=== PATIENT | female | born 1950 | race American Indian/Alaskan Native ===

== ENCOUNTER 2017-04-04 15:38 | Inpatient (IN) | payer MEDICARE ==
[2017-04-04] MEDS ORDERED: DUONEB 0.5 MG-3 MG/3 ML SOLN IH PRN (15:44)
[2017-04-04] MEDS ORDERED: ZOFRAN IV PRN (15:44)
[2017-04-04] MEDS ORDERED: D50W (25GM) IV PRN (15:46)
--- NOTE | 2017-04-04 15:47 | History and Physical Report ---
Medications and Allergies Active Meds: Active Medications Acetaminophen (Tylenol) 650 mg PO Q4H PRN PRN Reason: Pain MILD(1-3)/Fever >100.5/DUMONT Albuterol/Ipratropium (Duoneb 0.5 Mg-3 Mg/3 Ml Soln) 1 ampul IH Q6HRT PRN PRN Reason: Wheezing Dextrose (D50w (25gm)) 50 ml IV PRN PRN PRN Reason: Hypoglycemia Sodium Chloride (Nacl 0.45% 1000 Ml) 1,000 mls @ 42 mls/hr IV DIRECT CAMILA Insulin Aspart (Novolog) 0 units SUB-Q ACHS CAMILA PRN Reason: Protocol Ondansetron HCl (Zofran) 4 mg IV Q8H PRN PRN Reason: N/V unrelieved by Joe
[2017-04-04] MEDS ORDERED: PROVENTIL IH PRN (16:16)
[2017-04-04] MEDS: NACL 0.45% 1000 ML 1,000 ML IV SCH (17:53)
[2017-04-04] MEDS: NOVOLOG SUB-Q SCH (18:00)
[2017-04-04 20:04] LABS: Hematocrit 22.7 % (30.3-42.9); Hemoglobin 7.1 gm/dl (10.1-14.3); Mean Corpuscular HGB Conc 31 % (30-34); Mean Corpuscular Volume 67 fl (79-97); Platelet Count 344 K/mm3 (140-440); Red Blood Count 3.39 M/mm3 (3.65-5.03); White Blood Count 7.4 K/mm3 (4.5-11.0)
[2017-04-04 20:05] LABS: Mean Corpuscular Hemoglobin 21 pg (28-32)
[2017-04-04 20:15] LABS: INR 0.95 (0.87-1.13)
[2017-04-04 20:26] LABS: Alanine Aminotransferase 16 units/L (7-56); Albumin/Globulin Ratio 0.6 %; Alkaline Phosphatase 88 units/L (35-129); Anion Gap 20 mmol/L; BUN/Creatinine Ratio 11.11; Bilirubin,Total < 0.20 mg/dL (0.1-1.2); Blood Urea Nitrogen 30 mg/dL (7-17); Calcium 8.3 mg/dL (8.4-10.2); Carbon Dioxide 20 mmol/L (22-30); Chloride 104.2 mmol/L (98-107); Glucose 132 mg/dL (65-100); Potassium 3.5 mmol/L (3.6-5.0); Sodium 141 mmol/L (137-145); Total Protein 7.8 g/dL (6.3-8.2)
--- NOTE | 2017-04-04 20:47 | History and Physical Report ---
History of Present Illness Date of admission: 04/04/17 16:06 History of present illness: 66 YO Female Female who currently resides in an Assisted Living Facility with Dementia, HTN, ARF presents to ED for evaluation. Pt directly admitted at the request of Dr. Morrison for Acute Renal Failure,and Encephalopathy. Pt denies fever, chills, CP, Palpitations, NVD, Falls, Vertigo, BRBPR, productive cough, night sweats, hematuria, trauma, or recent ill contacts. Pt daughter at bedside, and request information regarding SNF/Dementia Unit placement. Pt daughter states that patient is becoming more confused, and her needs currently are not able to be met at her current facility. Past History Past Medical History: anemia, diabetes, hypertension, renal failure Past Surgical History: cholecystectomy, hysterectomy, Other (foot surgery) Social history: , lives with family. denies: smoking, alcohol abuse, prescription drug abuse Family history: hypertension Medications and Allergies Allergies Allergy/AdvReac Type Severity Reaction Status Date / Time Penicillins Allergy Rash Unverified 04/04/17 16:07 Active Meds: Active Medications Acetaminophen (Tylenol) 650 mg PO Q4H PRN PRN Reason: Pain MILD(1-3)/Fever >100.5/DUMONT Albuterol (Proventil) 2.5 mg IH Q6HRT PRN PRN Reason: Wheezing Dextrose (D50w (25gm)) 50 ml IV PRN PRN PRN Reason: Hypoglycemia Sodium Chloride (Nacl 0.45% 1000 Ml) 1,000 mls @ 42 mls/hr IV DIRECT CAMILA Last Admin: 04/04/17 17:53 Dose: 42 mls/hr Insulin Aspart (Novolog) 0 units SUB-Q ACHS CAMILA PRN Reason: Protocol Last Admin: 04/04/17 18:00 Dose: Not Given Ondansetron HCl (Zofran) 4 mg IV Q8H PRN PRN Reason: N/V unrelieved by [facility] Pneumococcal Polyvalent Vaccine (Pneumovax 23) 0.5 ml IM .ONCE ONE Stop: 04/05/17 12:01 Exam - Constitutional Vitals: Temp Pulse Resp BP Pulse Ox 98.7 F 78 19 179/92 04/04/17 17:00 04/04/17 17:00 04/04/17 17:00 04/04/17 17:00 Results - Labs CBC & Chem 7: 04/04/17 19:39 04/04/17 19:39 Labs: Abnormal lab results 04/04/17 04/04/17 04/04/17 Range/Units 17:08 19:05 19:39 RBC 3.39 L (3.65-5.03) M/mm3 Hgb 7.1 L (10.1-14.3) gm/dl Hct 22.7 L (30.3-42.9) % MCV 67 L (79-97) fl MCH 21 L (28-32) pg RDW 20.0 H (13.2-15.2) % Potassium (3.6-5.0) mmol/L Carbon Dioxide (22-30) mmol/L BUN (7-17) mg/dL Creatinine (0.7-1.2) mg/dL Glucose (65-100) mg/dL POC Glucose 47 L 155 H (70-105) Calcium (8.4-10.2) mg/dL Albumin (3.9-5) g/dL 04/04/17 Range/Units 19:39 RBC (3.65-5.03) M/mm3 Hgb (10.1-14.3) gm/dl Hct (30.3-42.9) % MCV (79-97) fl MCH (28-32) pg RDW (13.2-15.2) % Potassium 3.5 L (3.6-5.0) mmol/L Carbon Dioxide 20 L (22-30) mmol/L BUN 30 H (7-17) mg/dL Creatinine 2.7 H (0.7-1.2) mg/dL Glucose 132 H (65-100) mg/dL POC Glucose (70-105) Calcium 8.3 L (8.4-10.2) mg/dL Albumin 3.0 L (3.9-5) g/dL Assessment and Plan - Patient Problems (1) Symptomatic anemia Current Visit: Yes Status: Acute Plan to address problem: PRBC transfusion, supportive care, (2) ARF (acute renal failure) Current Visit: Yes Status: Acute Qualifiers: Acute renal failure type: A Plan to address problem: Renal ultrasound, urine electrolytes, monitor uop q shift, nephrology consulted , (3) Diabetes Current Visit: Yes Status: Acute Qualifiers: Diabetes mellitus type: D Diabetes mellitus complication status: D Diabetes mellitus complication detail: D Diabetic retinopathy severity: D Proliferative retinopathy type: P Diabetes mellitus macular edema: D Diabetes mellitus nursing home insulin use: D Laterality: L Chronic kidney disease stage: C Plan to address problem: ADA diet, insulin, accu check (4) Encephalopathy acute Current Visit: Yes Status: Acute Plan to address problem: CT head, urinalysis, supportive care. (5) Debility Current Visit: Yes Status: Acute Plan to address problem: PT consulted, Bed alarm, fall precautions. (6) DVT prophylaxis Current Visit: Yes Status: Acute
[2017-04-04 21:25] LABS: Basophils % (Manual) 0 % (0.0-1.8); Blastocytes % (Manual) 0 %; Eosinophils % (Manual) 0 % (0.0-4.3)
[2017-04-04 21:26] LABS: Diff Status Complete; Microcytosis 1+
--- NOTE | 2017-04-04 23:21 | Cat Scan Report ---
FINAL REPORT PROCEDURE: CT HEAD/BRAIN WO CON TECHNIQUE: Computerized tomography of the head was performed without contrast material. HISTORY: confusion COMPARISON: No prior studies are available for comparison. FINDINGS: Cerebral sulci and ventricles are prominent consistent with cerebral atrophy appropriate for patient's age. Moderate degree bilateral periventricular nonspecific white matter hypodensity is noted. An acute intracranial hemorrhage is not identified. There are multiple old lacunar infarcts involving bilateral basal ganglia. An irregular hypodense lesion measuring 1.8 x 0.7 centimeters is noted in the right internal capsule/basal ganglionic region is noted with ex vacuo dilatation of the right frontal horn. Atherosclerotic calcification is noted involving bilateral internal carotid and vertebral arteries. IMPRESSION: Multiple old lacunar infarcts bilateral basal ganglia. An irregular area of encephalomalacia involving the right periventricular region is consistent with an old infarct. No acute intracranial hemorrhage is identified. Cerebral atrophy appropriate for patient's age
[2017-04-05] MEDS: NOVOLOG SUB-Q SCH ×5 (00:15→23:31)
[2017-04-05] MEDS ORDERED: NACL 0.9% 500 ML 500 ML IV ONE (06:00)
[2017-04-05 07:17] LABS: Alanine Aminotransferase 15 units/L (7-56); Albumin/Globulin Ratio 0.7 %; Alkaline Phosphatase 84 units/L (35-129); BUN/Creatinine Ratio 12.08; Bilirubin,Total < 0.20 mg/dL (0.1-1.2); Blood Urea Nitrogen 29 mg/dL (7-17); Calcium 8.7 mg/dL (8.4-10.2); Carbon Dioxide 22 mmol/L (22-30); Glucose 98 mg/dL (65-100); Total Protein 7.4 g/dL (6.3-8.2)
[2017-04-05 07:18] LABS: Anion Gap 16 mmol/L; Chloride 105.4 mmol/L (98-107); Potassium 3.4 mmol/L (3.6-5.0); Sodium 140 mmol/L (137-145)
--- NOTE | 2017-04-05 09:33 | Consultation ---
History of Present Illness - Reason for Consult Consult date: 04/05/17 acute renal failure - History of Present Illness Mrs. Gregory is a 66yo with hypertension and DM who presented to nephrology clinic appt for follow up visit. She was initially referred by her PCP Dr. Mccarthy, for microalbuminuria. At initial visit, her SCr was 0.9mg/dL. However , follow up labs were notable for SCr 2.7mg/dL and UPCR 10grams. Patient also with decline in Hb to 7.1. Patient has no history of nausea, vomiting and diarrhea. According to patient's daughter, patient's appetite is unchanged. Ther is no history of epistaxis, hemoptysis, fever, chills. Patient's daughter also requested SNF placement. She was admitted for further management/ eval of ROXANN. Past History Past Medical History: anemia, diabetes, hypertension, renal failure Past Surgical History: cholecystectomy, hysterectomy, Other (foot surgery) Social history: , lives with family. denies: smoking, alcohol abuse, prescription drug abuse Family history: hypertension Medications and Allergies Allergies Allergy/AdvReac Type Severity Reaction Status Date / Time Penicillins Allergy Rash Unverified 04/04/17 16:07 Home Medications Medication Instructions Recorded Confirmed Last Taken Type Amlodipine Besylate 10 mg PO DAILY 04/05/17 04/05/17 Unknown History AtorvaSTATin 20 mg PO DAILY 04/05/17 04/05/17 Unknown History Cyanocobalamin (Vitamin B-12) 1,000 mcg PO DAILY 04/05/17 04/05/17 Unknown History [B-12] Donepezil [Aricept] 10 mg PO DAILY 04/05/17 04/05/17 Unknown History Ferrous Sulfate [Feosol] 325 mg PO QDAY 04/05/17 04/05/17 Unknown History Hydrochlorothiazide [HCTZ] 25 mg PO QDAY 04/05/17 04/05/17 Unknown History Ibandronate Sodium [Boniva] 150 mg PO QMONTH 04/05/17 04/05/17 Unknown History QUEtiapine [SEROquel] 25 mg PO DAILY 04/05/17 04/05/17 Unknown History Sitagliptin Phosphate [Januvia] 100 mg PO DAILY 04/05/17 04/05/17 Unknown History glipiZIDE [Glucotrol] 5 mg PO QDAY 04/05/17 04/05/17 Unknown History metFORMIN [Glucophage] 500 mg PO QDAY 04/05/17 04/05/17 Unknown History traZODone [Desyrel] 100 mg PO QHS 04/05/17 04/05/17 Unknown History Active Meds: Active Medications Acetaminophen (Tylenol) 650 mg PO Q4H PRN PRN Reason: Pain MILD(1-3)/Fever >100.5/DUMONT Albuterol (Proventil) 2.5 mg IH Q6HRT PRN PRN Reason: Wheezing Dextrose (D50w (25gm)) 50 ml IV PRN PRN PRN Reason: Hypoglycemia Sodium Chloride (Nacl 0.45% 1000 Ml) 1,000 mls @ 42 mls/hr IV DIRECT CAMILA Last Admin: 04/04/17 17:53 Dose: 42 mls/hr Insulin Aspart (Novolog) 0 units SUB-Q ACHS CAMILA PRN Reason: Protocol Last Admin: 04/05/17 09:08 Dose: Not Given Ondansetron HCl (Zofran) 4 mg IV Q8H PRN PRN Reason: N/V unrelieved by [facility] Pneumococcal Polyvalent Vaccine (Pneumovax 23) 0.5 ml IM .ONCE ONE Stop: 04/05/17 12:01 Review of Systems Constitutional: no fever, no chills, no sweats Ears, nose, mouth and throat: no epistaxis Cardiovascular: no chest pain, no orthopnea, no shortness of breath Respiratory: no cough, no hemoptysis, no shortness of breath, no dyspnea on exertion Gastrointestinal: no abdominal pain, no nausea, no vomiting, no diarrhea, no BRBPR, no melena Musculoskeletal: no myalgias Integumentary: no rash Neurological: memory loss Exam - Vital Signs Vital signs: Vital Signs Temp Pulse Resp BP 98.7 F 78 19 179/92 04/04/17 17:00 04/04/17 17:00 04/04/17 17:00 04/04/17 17:00 - General Appearance General appearance: well-developed, well-nourished EENT: ATNC Respiratory: Clear to Ascultation Heart: regular, S1S2 Gastrointestinal: Present: normal. Absent: tenderness, distended Integumentary: no rash Musculoskeletal: Present: other (no edema) Psychiatric: cooperative Results - Lab Results 04/04/17 19:39 04/05/17 06:27 Most recent lab results Calcium 8.7 mg/dL (8.4-10.2) 04/05/17 06:27 Assessment and Plan Impression: * Acute kidney injury - r/o vasculitis --baseline SCr 0.9mg.dL * Nephrotic range proteinuria * Anemia * Type II DM * Hypertension * Dementia Plan: * SCr has improved with IVF - will continue * Obtain urine lytes, u/a; repeat urine protein:creatinine ratio * Obtain UPEP/SPEP/SIFE * Continue to hold metformin * Patient may require renal bx in light of ROXANN and nephrotic range proteinura on outpatient labs * Per RN, daughter declines pRBC transfusion * Avoid nephrotoxins * Dose medications for renal function * SNF placement per request of daughter
[2017-04-05 10:02] LABS: Bacteria,Urine 4+ /HPF (Negative); Bilirubin,Urine NEG (Negative); Blood,Urine NEG (Negative); Ketones,Urine NEG (Negative); Leukocyte Esterase,Urine MOD (Negative); Mucus,Urine FEW /HPF; Nitrite,Urine NEG (Negative); Urobilinogen,Urine < 2.0 mg/dL (<2.0)
--- NOTE | 2017-04-05 10:38 | Ultrasound Report ---
ULTRASOUND RENAL BILATERAL HISTORY: Acute renal failure. TECHNIQUE: transabdominal ultrasound with color Doppler interrogation. FINDINGS: The right kidney measures 9.4 x 4.8 x 5.8cm. Right renal cortex: 1.8cm. The left kidney measures 8.6 x 5.7 x 6.1cm. Left renal cortex: 1.8cm. Both kidneys are at the lower limits of normal size. The renal parenchyma is echogenic bilaterally. There are 3 cysts in the mid right kidney measuring 9 mm, 15 mm and 21 mm. There is no evidence for renal mass, nephrolithiasis or hydronephrosis. The bladder is partially empty but unremarkable. No evidence for cystic disease, mass, hydronephrosis or perinephric fluid. IMPRESSION: Borderline atrophic kidneys. Echogenic kidneys. This could represent chronic renal parenchymal disease or acute renal failure.
--- NOTE | 2017-04-05 11:19 | Admit Criteria Form ---
Admission Criteria Documentation: RENAL FAILURE, ACUTE Clinical Indications for Admission to Inpatient Care ( Place 'X' for any and all applicable criteria): Admission is indicated for ALL (if I & II) or III of the following [A](2)(3)(4)( 5)(6)(7): [ ]I. Acute renal failure as indicated by ANY ONE of the following: [ ]a) A 3-fold rise in serum creatinine from baseline [ ]b) Serum creatinine greater than 4 mg/dL (354 micromoles/L) with an acute rise greater than 0.5 mg/dL (44.2 micromoles/L) [ ]c) Reduction of more than 75% in estimated glomerular filtration rate from baseline [ ]d) Estimated glomerular filtration rate less than 35 mL/min/1.73m2 (0.59mL/sec/1.73m2)in a child up to 18 years of age [ ]e) Anuria indicated by ALL of the following: [ ]i) Adequate volume status [ ]ii) Cessation of urine output indicated by ANY ONE of the following: [ ]1) Urine output less than 0.3 mL/kg/hr for 24 hours [ ]2) Anuria (urine output less than 0.1 mL/kg/ hr) for 12 hours [ ] II. Renal failure cannot be managed in an outpatient setting or observational care setting as indicating by ANY ONE of the following: [ ]a) Altered mental status that is severe or persistent [ ]b) Volume overload or Respiratory distress (eg, clinically significant pulmonary edema) that is severe or persistent [ ]c) Cardiac arrhythmias of immediate concern [ ]d) Hemodynamic instability [ ]e) Clinically significant electrolyte abnormality that requires inpatient care (eg, hyperkalemia with severe ECG findings)[B] [ ]f) Clinically significant metabolic abnormality (eg, acidosis) that is severe or persistent [ ]g) Acute treatment of renal failure (eg, renal replacement therapy) not feasible or appropriate in observational care setting [ ]h) Clinical situation too unstable or uncertain (eg, inadequate urine output, ongoing decline in renal function, etiology unclear) [ ]i) Necessary support and caregiver ability to comply with outpatient treatment cannot be arranged in observation care timeframe (eg, within 24 hours) [ ]j) Other significant finding or clinical condition judged not to be within scope of observation care [X]III.General contraindications and/or Inappropriate clinical situations for Observational Care in patients with Acute Renal Failure, when ANY ONE of the following is required: [X]a) Prediction of prolongation of LOS based on ANY ONE of the following may be considered as a contraindication for observational care 2, 3, 4, 5, 6, 7, 8 , 9, 10, 11 [X]i) Age > 65 yrs. [ ]ii) Patient arriving by ambulance [ ]iii) Patient with high acuity [ ]iv) Patient requiring vital sign monitoring [ ]v) Patient on IV medication [X]b) Systolic blood pressures 180mmHg 3,12 [ ]c) Patient with altered mental status including delirium and other alteration of consciousness, (3) [ ]d) Patient whose discharge disposition will be to a penitentiary home or rehabilitation home should not be managed in Emergency Department Observation Unit. CMS rule requires 3 days hospital stay before such placement.3,13 [ ]e) Patient with failure to thrive due to broad array of etiologies 3, 16,17 [ ]f) Inability to ambulate 3,14 Extended stay beyond goal length of stay may be needed for(13) [ ]a) Continuing uremic complications [ ]b) Care for comorbidities [ ]c) acute renal failure [ ]d) Need for dialysis The original [employer] content created by [employer] has been revised. The portions of the content which have been revised are identified through the use of italic text or in bold, and [facility] has neither reviewed nor approved the modified material. All other unmodified content is copyright [facility]. Please see references footnoted in the original [facility] edition 2016 Admission Criteria Met: Yes
[2017-04-05] MEDS ORDERED: PNEUMOVAX 23 IM ONE (12:00)
--- NOTE | 2017-04-05 12:15 | Progress Note ---
Assessment and Plan - Patient Problems (1) Symptomatic anemia Current Visit: Yes Status: Acute Plan to address problem: PRBC transfusion, supportive care, (2) ARF (acute renal failure) Current Visit: Yes Status: Acute Qualifiers: Acute renal failure type: A Plan to address problem: Renal ultrasound, urine electrolytes, monitor uop q shift, nephrology consulted , (3) Diabetes Current Visit: Yes Status: Acute Qualifiers: Diabetes mellitus type: D Diabetes mellitus complication status: D Diabetes mellitus complication detail: D Diabetic retinopathy severity: D Proliferative retinopathy type: P Diabetes mellitus macular edema: D Diabetes mellitus long term acute care registered nurse insulin use: D Laterality: L Chronic kidney disease stage: C Plan to address problem: ADA diet, insulin, accu check (4) Encephalopathy acute Current Visit: Yes Status: Acute Plan to address problem: CT head, urinalysis, supportive care. (5) Debility Current Visit: Yes Status: Acute Plan to address problem: PT consulted, Bed alarm, fall precautions. (6) DVT prophylaxis Current Visit: Yes Status: Acute History Interval history: Pt lying in bed, Pt denies pain. No reported nursing events. Discussed care plan with daughter, who refuses blood transfusion. Hospitalist Physical - Constitutional Vitals: Temp Pulse Resp BP Pulse Ox 98.3 F 67 19 182/94 99 04/05/17 07:00 04/05/17 07:00 04/05/17 07:00 04/05/17 07:00 04/05/17 07:00 General appearance: Present: no acute distress - EENT Eyes: Present: PERRL ENT: hearing intact - Neck Neck: Present: supple - Respiratory Respiratory: bilateral: diminished - Cardiovascular Rhythm: regular Heart Sounds: Present: S1 & S2 - Extremities Extremities: no ischemia Peripheral Pulses: within normal limits - Abdominal General gastrointestinal: soft, non-distended - Integumentary Integumentary: Present: clear, dry - Psychiatric Psychiatric: no intact judgment & insight, no memory intact, cooperative - Neurologic Neurologic: CNII-XII intact Results - Labs CBC & Chem 7: 04/04/17 19:39 04/05/17 06:27 Labs: Laboratory Last Values WBC 7.4 K/mm3 (4.5-11.0) 04/04/17 19:39 RBC 3.39 M/mm3 (3.65-5.03) L 04/04/17 19:39 Hgb 7.1 gm/dl (10.1-14.3) L 04/04/17 19:39 Hct 22.7 % (30.3-42.9) L 04/04/17 19:39 MCV 67 fl (79-97) L 04/04/17 19:39 MCH 21 pg (28-32) L 04/04/17 19:39 MCHC 31 % (30-34) 04/04/17 19:39 RDW 20.0 % (13.2-15.2) H 04/04/17 19:39 Plt Count 344 K/mm3 (140-440) 04/04/17 19:39 Add Manual Diff Complete 04/04/17 19:39 Total Counted 100 04/04/17 19:39 Seg Neuts % (Manual) 66.0 % (40.0-70.0) 04/04/17 19:39 Band Neutrophils % 0 % 04/04/17 19:39 Lymphocytes % (Manual) 28.0 % (13.4-35.0) 04/04/17 19:39 Reactive Lymphs % (Man) 0 % 04/04/17 19:39 Monocytes % (Manual) 6.0 % (0.0-7.3) 04/04/17 19:39 Eosinophils % (Manual) 0 % (0.0-4.3) 04/04/17 19:39 Basophils % (Manual) 0 % (0.0-1.8) 04/04/17 19:39 Metamyelocytes % 0 % 04/04/17 19:39 Myelocytes % 0 % 04/04/17 19:39 Promyelocytes % 0 % 04/04/17 19:39 Blast Cells % 0 % 04/04/17 19:39 Nucleated RBC % Not Reportable 04/04/17 19:39 Seg Neutrophils # Man 4.9 K/mm3 (1.8-7.7) 04/04/17 19:39 Band Neutrophils # 0.0 K/mm3 04/04/17 19:39 Lymphocytes # (Manual) 2.1 K/mm3 (1.2-5.4) 04/04/17 19:39 Abs React Lymphs (Man) 0.0 K/mm3 04/04/17 19:39 Monocytes # (Manual) 0.4 K/mm3 (0.0-0.8) 04/04/17 19:39 Eosinophils # (Manual) 0.0 K/mm3 (0.0-0.4) 04/04/17 19:39 Basophils # (Manual) 0.0 K/mm3 (0.0-0.1) 04/04/17 19:39 Metamyelocytes # 0.0 K/mm3 04/04/17 19:39 Myelocytes # 0.0 K/mm3 04/04/17 19:39 Promyelocytes # 0.0 K/mm3 04/04/17 19:39 Blast Cells # 0.0 K/mm3 04/04/17 19:39 WBC Morphology Not Reportable 04/04/17 19:39 Hypersegmented Neuts Not Reportable 04/04/17 19:39 Hyposegmented Neuts Not Reportable 04/04/17 19:39 Hypogranular Neuts Not Reportable 04/04/17 19:39 Smudge Cells Not Reportable 04/04/17 19:39 Toxic Granulation Not Reportable 04/04/17 19:39 Toxic Vacuolation Not Reportable 04/04/17 19:39 Dohle Bodies Not Reportable 04/04/17 19:39 Pelger-Huet Anomaly Not Reportable 04/04/17 19:39 Dung Rods Not Reportable 04/04/17 19:39 Platelet Estimate Appears normal 04/04/17 19:39 Clumped Platelets Not Reportable 04/04/17 19:39 Plt Clumps, EDTA Not Reportable 04/04/17 19:39 Large Platelets Not Reportable 04/04/17 19:39 Giant Platelets Not Reportable 04/04/17 19:39 Platelet Satelliting Not Reportable 04/04/17 19:39 Plt Morphology Comment Not Reportable 04/04/17 19:39 RBC Morphology Not Reportable 04/04/17 19:39 Dimorphic RBCs Not Reportable 04/04/17 19:39 Polychromasia Not Reportable 04/04/17 19:39 Hypochromasia Not Reportable 04/04/17 19:39 Poikilocytosis Not Reportable 04/04/17 19:39 Anisocytosis Not Reportable 04/04/17 19:39 Microcytosis 1+ 04/04/17 19:39 Macrocytosis Not Reportable 04/04/17 19:39 Spherocytes Not Reportable 04/04/17 19:39 Pappenheimer Bodies Not Reportable 04/04/17 19:39 Sickle Cells Not Reportable 04/04/17 19:39 Target Cells Not Reportable 04/04/17 19:39 Tear Drop Cells Not Reportable 04/04/17 19:39 Ovalocytes Not Reportable 04/04/17 19:39 Helmet Cells Not Reportable 04/04/17 19:39 Pineda-Thompson Bodies Not Reportable 04/04/17 19:39 Saunemin Rings Not Reportable 04/04/17 19:39 [place] Cells Not Reportable 04/04/17 19:39 Bite Cells Not Reportable 04/04/17 19:39 Crenated Cell Not Reportable 04/04/17 19:39 Elliptocytes Not Reportable 04/04/17 19:39 Acanthocytes (Spur) Not Reportable 04/04/17 19:39 Rouleaux Not Reportable 04/04/17 19:39 Hemoglobin C Crystals Not Reportable 04/04/17 19:39 Schistocytes Not Reportable 04/04/17 19:39 Malaria parasites Not Reportable 04/04/17 19:39 Joe Bodies Not Reportable 04/04/17 19:39 Hem Pathologist Commnt No 04/04/17 19:39 PT 12.6 Sec. (12.2-14.9) 04/04/17 19:39 INR 0.95 (0.87-1.13) 04/04/17 19:39 Sodium 140 mmol/L (137-145) 04/05/17 06:27 Potassium 3.4 mmol/L (3.6-5.0) L 04/05/17 06:27 Chloride 105.4 mmol/L (98-107) 04/05/17 06:27 Carbon Dioxide 22 mmol/L (22-30) 04/05/17 06:27 Anion Gap 16 mmol/L 04/05/17 06:27 BUN 29 mg/dL (7-17) H 04/05/17 06:27 Creatinine 2.4 mg/dL (0.7-1.2) H 04/05/17 06:27 Estimated GFR 24 ml/min 04/05/17 06:27 BUN/Creatinine Ratio 12.08 % 04/05/17 06:27 Glucose 98 mg/dL (65-100) 04/05/17 06:27 POC Glucose 99 (70-105) 04/05/17 06:13 Calcium 8.7 mg/dL (8.4-10.2) 04/05/17 06:27 Total Bilirubin < 0.20 mg/dL (0.1-1.2) 04/05/17 06:27 AST 24 units/L (5-40) 04/05/17 06:27 ALT 15 units/L (7-56) 04/05/17 06:27 Alkaline Phosphatase 84 units/L (35-129) 04/05/17 06:27 Total Protein 7.4 g/dL (6.3-8.2) 04/05/17 06:27 Albumin 3.0 g/dL (3.9-5) L 04/05/17 06:27 Albumin/Globulin Ratio 0.7 % 04/05/17 06:27 Urine Color Straw (Yellow) 04/05/17 09:42 Urine Turbidity Clear (Clear) 04/05/17 09:42 Urine pH 6.0 (5.0-7.0) 04/05/17 09:42 Ur Specific [place] 1.011 (1.003-1.030) 04/05/17 09:42 Urine Protein 100 mg/dl mg/dL (Negative) 04/05/17 09:42 Urine Glucose (UA) Neg mg/dL (Negative) 04/05/17 09:42 Urine Ketones Neg mg/dL (Negative) 04/05/17 09:42 Urine Blood Neg (Negative) 04/05/17 09:42 Urine Nitrite Neg (Negative) 04/05/17 09:42 Urine Bilirubin Neg (Negative) 04/05/17 09:42 Urine Urobilinogen < 2.0 mg/dL (<2.0) 04/05/17 09:42 Ur Leukocyte Esterase Mod (Negative) 04/05/17 09:42 Urine WBC (Auto) 26.0 /HPF (0.0-6.0) H 04/05/17 09:42 Urine RBC (Auto) 3.0 /HPF (0.0-6.0) 04/05/17 09:42 U Epithel Cells (Auto) < 1.0 /HPF (0-13.0) 04/05/17 09:42 Urine Bacteria (Auto) 4+ /HPF (Negative) 04/05/17 09:42 Urine Mucus Few /HPF 04/05/17 09:42 Urine Creatinine 50.5 mg/dL (0.1-20.0) H 04/05/17 08:40 Protein/Creatinin Ratio 10.24 04/05/17 08:40 Urine Total Protein 517 mg/dL (5-11.8) H 04/05/17 08:40 Blood Type O POSITIVE 04/05/17 06:27 STEPHANIE Antibody Screen Negative 04/05/17 06:27 Crossmatch See Detail 04/05/17 06:27
[2017-04-05] MEDS: NACL 0.45% 1000 ML 1,000 ML IV SCH (21:05)
[2017-04-05] MEDS ORDERED: DESYREL PO SCH (22:00)
[2017-04-05] MEDS: ARICEPT PO SCH (23:40)
--- NOTE | 2017-04-06 08:12 | Query- Renal Failure ---
Deapaige Rascon Date:_04/06/17 Detail Sergeant/CDS:Wyatt Carter Phone#:_[phone] Exercise your independent professional judgment when responding to query. Questions asked do not imply a particular answer is desired or expected. We greatly appreciate your clarification on this issue. Clinical Documentation States: 66 YO Female Female who currently resides in an Assisted Living Facility with Dementia, HTN, ARF presents to ED for evaluation. Pt directly admitted at the request of Dr. Morrison for Acute Renal Failure,and Encephalopathy Clinical Findings Show: 04/05 04/06 Creat: 2.7 2.4 Please clarify if you mean: Acute Renal Failure with or due to: [x ] Tubular Necrosis [ ] Medullary Necrosis [ ] Vasomotor Nephropathy [ ] Shock Kidney [ ] Tubular Nephrosis [ ] Renal Tubular Stasis [ ] Cortical Necrosis [ ] Acute Renal Failure (unspecified) [ ] Lower Tubular Nephrosis [ ] Other: [ ] Not Applicable Present on Admission: [ ] Yes (Y) [ ] Clinically undeterminable (W) [ ] No (N) Please also document response in your Progress Notes and/or Discharge Summary and indicate if the condition was present on admission. MTDD
[2017-04-06] MEDS: NOVOLOG SUB-Q SCH ×4 (08:29→23:54)
--- NOTE | 2017-04-06 09:14 | Progress Note ---
Assessment and Plan Impression: * Acute kidney injury - r/o vasculitis --baseline SCr 0.9mg.dL * Nephrotic range proteinuria UPCR 10grams * Anemia * Type II DM * Hypertension * Dementia Plan: * Renal function unchanged * Await UPEP/SPEP/SIFE * Avoid nephrotoxins * Dose medications for renal function * SNF placement per request of daughter * Returned at 1950 - daughter at bedside; updated her of lab results - patient with abrupt change in renal function in setting of nephrotic range proteinuria. Discussed management options: close observation - informed daughter that renal function will likely continue to worsen with need for dialysis in future vs proceeding with renal biopsy. Daughter informed of risks of renal biopsy: hematuria, need for blood transfusion, embolization, nephrectomy and . Daughter voice understanding. Also informed daughter that patient may even require a blood transfusion prior to biopsy. Furthermore, pending results of biopsy, daughter informed that patient may require aggressive treatment (i.e. chemotherapy/immunosuppressives); advised daughter, a renal biopsy should not be performed, if she would decline these types of medications. Daughter voiced understanding - she agrees to proceed with biopsy, she agrees to blood transfusion if clinically indicated, she agrees to treatment. * NPO after MN * Renal bx in AM ordered Subjective Date of service: 04/06/17 Interval history: No acute events overnight Objective - Vital Signs Vital signs: Vital Signs - 12hr 04/05/17 04/06/17 04/06/17 23:57 00:15 08:54 Temperature 98.2 F 98.1 F Pulse Rate [ 71 67 69 Left Radial] Respiratory 18 18 Rate Blood Pressure 192/94 178/95 [Left Arm] O2 Sat by Pulse 99 98 Oximetry - General Appearance General appearance: well-developed, well-nourished EENT: ATNC Respiratory: Present: Clear to Ascultation Cardiology: regular, S1S2 Gastrointestinal: normal, no tenderness, no distended Integumentary: no rash Musculoskeletal: other (no edema) Psychiatric: cooperative - Lab 04/06/17 08:46 04/06/17 08:46 Most recent lab results Calcium 8.7 mg/dL (8.4-10.2) 04/05/17 06:27 Urine Creatinine 50.5 mg/dL (0.1-20.0) H 04/05/17 08:40 Urine Total Protein 517 mg/dL (5-11.8) H 04/05/17 08:40
[2017-04-06 09:43] LABS: Basophils % (Auto) 0.9 % (0.0-1.8); Eosinophils % (Auto) 2.7 % (0.0-4.3); Hematocrit 22.6 % (30.3-42.9); Hemoglobin 7.1 gm/dl (10.1-14.3); Mean Corpuscular HGB Conc 31 % (30-34); Mean Corpuscular Hemoglobin 21 pg (28-32); Mean Corpuscular Volume 67 fl (79-97); Platelet Count 317 K/mm3 (140-440); Red Blood Count 3.36 M/mm3 (3.65-5.03); White Blood Count 6.8 K/mm3 (4.5-11.0)
[2017-04-06 10:38] LABS: Calcium 8.1 mg/dL (8.4-10.2); Chloride 105.8 mmol/L (98-107); Potassium 3.3 mmol/L (3.6-5.0)
--- NOTE | 2017-04-06 13:59 | Progress Note ---
Assessment and Plan - Patient Problems (1) Symptomatic anemia Current Visit: Yes Status: Acute Plan to address problem: PRBC transfusion, supportive care, (2) ARF (acute renal failure) Current Visit: Yes Status: Acute Qualifiers: Acute renal failure type: A Plan to address problem: Renal ultrasound, urine electrolytes, monitor uop q shift, nephrology consulted , (3) Diabetes Current Visit: Yes Status: Acute Qualifiers: Diabetes mellitus type: D Diabetes mellitus complication status: D Diabetes mellitus complication detail: D Diabetic retinopathy severity: D Proliferative retinopathy type: P Diabetes mellitus macular edema: D Diabetes mellitus exterminator insulin use: D Laterality: L Chronic kidney disease stage: C Plan to address problem: ADA diet, insulin, accu check (4) Encephalopathy acute Current Visit: Yes Status: Acute Plan to address problem: CT head, urinalysis, supportive care. (5) Debility Current Visit: Yes Status: Acute Plan to address problem: PT consulted, Bed alarm, fall precautions. (6) DVT prophylaxis Current Visit: Yes Status: Acute History Interval history: Pt lying in bed, Pt denies pain. No reported nursing events. Pt medically stable overnight. Case management consulted for SNF placement. Hospitalist Physical - Constitutional Vitals: Temp Pulse Resp BP Pulse Ox 98.1 F 69 18 178/95 98 04/06/17 08:54 04/06/17 08:54 04/06/17 08:54 04/06/17 08:54 04/06/17 08:54 General appearance: Present: no acute distress - EENT Eyes: Present: PERRL ENT: hearing intact - Neck Neck: Present: supple - Respiratory Respiratory: bilateral: diminished - Cardiovascular Rhythm: regular Heart Sounds: Present: S1 & S2 - Extremities Extremities: no ischemia Peripheral Pulses: within normal limits - Abdominal General gastrointestinal: soft, non-tender, non-distended - Integumentary Integumentary: Present: clear, dry - Psychiatric Psychiatric: no intact judgment & insight, no memory intact - Neurologic Neurologic: CNII-XII intact Results - Labs CBC & Chem 7: 04/06/17 08:46 04/06/17 08:46 Labs: Laboratory Last Values WBC 6.8 K/mm3 (4.5-11.0) 04/06/17 08:46 RBC 3.36 M/mm3 (3.65-5.03) L 04/06/17 08:46 Hgb 7.1 gm/dl (10.1-14.3) L 04/06/17 08:46 Hct 22.6 % (30.3-42.9) L 04/06/17 08:46 MCV 67 fl (79-97) L 04/06/17 08:46 MCH 21 pg (28-32) L 04/06/17 08:46 MCHC 31 % (30-34) 04/06/17 08:46 RDW 20.0 % (13.2-15.2) H 04/06/17 08:46 Plt Count 317 K/mm3 (140-440) 04/06/17 08:46 Lymph % (Auto) 33.8 % (13.4-35.0) 04/06/17 08:46 [place] % (Auto) 6.0 % (0.0-7.3) 04/06/17 08:46 Eos % (Auto) 2.7 % (0.0-4.3) 04/06/17 08:46 Baso % (Auto) 0.9 % (0.0-1.8) 04/06/17 08:46 Lymph # 2.3 K/mm3 (1.2-5.4) 04/06/17 08:46 [place] # 0.4 K/mm3 (0.0-0.8) 04/06/17 08:46 Eos # 0.2 K/mm3 (0.0-0.4) 04/06/17 08:46 Baso # 0.1 K/mm3 (0.0-0.1) 04/06/17 08:46 Add Manual Diff Complete 04/04/17 19:39 Total Counted 100 04/04/17 19:39 Seg Neutrophils % 56.6 % (40.0-70.0) 04/06/17 08:46 Seg Neuts % (Manual) 66.0 % (40.0-70.0) 04/04/17 19:39 Band Neutrophils % 0 % 04/04/17 19:39 Lymphocytes % (Manual) 28.0 % (13.4-35.0) 04/04/17 19:39 Reactive Lymphs % (Man) 0 % 04/04/17 19:39 Monocytes % (Manual) 6.0 % (0.0-7.3) 04/04/17 19:39 Eosinophils % (Manual) 0 % (0.0-4.3) 04/04/17 19:39 Basophils % (Manual) 0 % (0.0-1.8) 04/04/17 19:39 Metamyelocytes % 0 % 04/04/17 19:39 Myelocytes % 0 % 04/04/17 19:39 Promyelocytes % 0 % 04/04/17 19:39 Blast Cells % 0 % 04/04/17 19:39 Nucleated RBC % Not Reportable 04/04/17 19:39 Seg Neutrophils # 3.8 K/mm3 (1.8-7.7) 04/06/17 08:46 Seg Neutrophils # Man 4.9 K/mm3 (1.8-7.7) 04/04/17 19:39 Band Neutrophils # 0.0 K/mm3 04/04/17 19:39 Lymphocytes # (Manual) 2.1 K/mm3 (1.2-5.4) 04/04/17 19:39 Abs React Lymphs (Man) 0.0 K/mm3 04/04/17 19:39 Monocytes # (Manual) 0.4 K/mm3 (0.0-0.8) 04/04/17 19:39 Eosinophils # (Manual) 0.0 K/mm3 (0.0-0.4) 04/04/17 19:39 Basophils # (Manual) 0.0 K/mm3 (0.0-0.1) 04/04/17 19:39 Metamyelocytes # 0.0 K/mm3 04/04/17 19:39 Myelocytes # 0.0 K/mm3 04/04/17 19:39 Promyelocytes # 0.0 K/mm3 04/04/17 19:39 Blast Cells # 0.0 K/mm3 04/04/17 19:39 WBC Morphology Not Reportable 04/04/17 19:39 Hypersegmented Neuts Not Reportable 04/04/17 19:39 Hyposegmented Neuts Not Reportable 04/04/17 19:39 Hypogranular Neuts Not Reportable 04/04/17 19:39 Smudge Cells Not Reportable 04/04/17 19:39 Toxic Granulation Not Reportable 04/04/17 19:39 Toxic Vacuolation Not Reportable 04/04/17 19:39 Dohle Bodies Not Reportable 04/04/17 19:39 Pelger-Huet Anomaly Not Reportable 04/04/17 19:39 Dung Rods Not Reportable 04/04/17 19:39 Platelet Estimate Appears normal 04/04/17 19:39 Clumped Platelets Not Reportable 04/04/17 19:39 Plt Clumps, EDTA Not Reportable 04/04/17 19:39 Large Platelets Not Reportable 04/04/17 19:39 Giant Platelets Not Reportable 04/04/17 19:39 Platelet Satelliting Not Reportable 04/04/17 19:39 Plt Morphology Comment Not Reportable 04/04/17 19:39 RBC Morphology Not Reportable 04/04/17 19:39 Dimorphic RBCs Not Reportable 04/04/17 19:39 Polychromasia Not Reportable 04/04/17 19:39 Hypochromasia Not Reportable 04/04/17 19:39 Poikilocytosis Not Reportable 04/04/17 19:39 Anisocytosis Not Reportable 04/04/17 19:39 Microcytosis 1+ 04/04/17 19:39 Macrocytosis Not Reportable 04/04/17 19:39 Spherocytes Not Reportable 04/04/17 19:39 Pappenheimer Bodies Not Reportable 04/04/17 19:39 Sickle Cells Not Reportable 04/04/17 19:39 Target Cells Not Reportable 04/04/17 19:39 Tear Drop Cells Not Reportable 04/04/17 19:39 Ovalocytes Not Reportable 04/04/17 19:39 Helmet Cells Not Reportable 04/04/17 19:39 [place] Bodies Not Reportable 04/04/17 19:39 [place] Rings Not Reportable 04/04/17 19:39 Mega Cells Not Reportable 04/04/17 19:39 Bite Cells Not Reportable 04/04/17 19:39 Crenated Cell Not Reportable 04/04/17 19:39 Elliptocytes Not Reportable 04/04/17 19:39 Acanthocytes (Spur) Not Reportable 04/04/17 19:39 Rouleaux Not Reportable 04/04/17 19:39 Hemoglobin C Crystals Not Reportable 04/04/17 19:39 Schistocytes Not Reportable 04/04/17 19:39 Malaria parasites Not Reportable 04/04/17 19:39 Joe Bodies Not Reportable 04/04/17 19:39 Hem Pathologist Commnt No 04/04/17 19:39 PT 12.6 Sec. (12.2-14.9) 04/04/17 19:39 INR 0.95 (0.87-1.13) 04/04/17 19:39 Sodium 142 mmol/L (137-145) 04/06/17 08:46 Potassium 3.3 mmol/L (3.6-5.0) L 04/06/17 08:46 Chloride 105.8 mmol/L (98-107) 04/06/17 08:46 Carbon Dioxide 23 mmol/L (22-30) 04/06/17 08:46 Anion Gap 17 mmol/L 04/06/17 08:46 BUN 25 mg/dL (7-17) H 04/06/17 08:46 Creatinine 2.5 mg/dL (0.7-1.2) H 04/06/17 08:46 Estimated GFR 23 ml/min 04/06/17 08:46 BUN/Creatinine Ratio 10.00 % 04/06/17 08:46 Glucose 114 mg/dL (65-100) H 04/06/17 08:46 POC Glucose 98 (70-105) 04/06/17 06:14 Hemoglobin A1c < 4.2 % (4-6) 04/05/17 19:39 Calcium 8.1 mg/dL (8.4-10.2) L 04/06/17 08:46 Total Bilirubin < 0.20 mg/dL (0.1-1.2) 04/05/17 06:27 AST 24 units/L (5-40) 04/05/17 06:27 ALT 15 units/L (7-56) 04/05/17 06:27 Alkaline Phosphatase 84 units/L (35-129) 04/05/17 06:27 Total Protein 7.4 g/dL (6.3-8.2) 04/05/17 06:27 Albumin 3.0 g/dL (3.9-5) L 04/05/17 06:27 Albumin/Globulin Ratio 0.7 % 04/05/17 06:27 Urine Color Straw (Yellow) 04/05/17 09:42 Urine Turbidity Clear (Clear) 04/05/17 09:42 Urine pH 6.0 (5.0-7.0) 04/05/17 09:42 Ur Specific [place] 1.011 (1.003-1.030) 04/05/17 09:42 Urine Protein 100 mg/dl mg/dL (Negative) 04/05/17 09:42 Urine Glucose (UA) Neg mg/dL (Negative) 04/05/17 09:42 Urine Ketones Neg mg/dL (Negative) 04/05/17 09:42 Urine Blood Neg (Negative) 04/05/17 09:42 Urine Nitrite Neg (Negative) 04/05/17 09:42 Urine Bilirubin Neg (Negative) 04/05/17 09:42 Urine Urobilinogen < 2.0 mg/dL (<2.0) 04/05/17 09:42 Ur Leukocyte Esterase Mod (Negative) 04/05/17 09:42 Urine WBC (Auto) 26.0 /HPF (0.0-6.0) H 04/05/17 09:42 Urine RBC (Auto) 3.0 /HPF (0.0-6.0) 04/05/17 09:42 U Epithel Cells (Auto) < 1.0 /HPF (0-13.0) 04/05/17 09:42 Urine Bacteria (Auto) 4+ /HPF (Negative) 04/05/17 09:42 Urine Mucus Few /HPF 04/05/17 09:42 Urine Creatinine 50.5 mg/dL (0.1-20.0) H 04/05/17 08:40 Protein/Creatinin Ratio 10.24 04/05/17 08:40 Urine Total Protein 517 mg/dL (5-11.8) H 04/05/17 08:40 Blood Type O POSITIVE 04/05/17 06:27 STEPHANIE Antibody Screen Negative 04/05/17 06:27 Crossmatch See Detail 04/05/17 06:27
[2017-04-06] MEDS ORDERED: IBANDRONATE SODIUM 150 MG PO SCH (16:30)
[2017-04-06] MEDS: ARICEPT PO SCH (22:39)
[2017-04-06] MEDS: DESYREL PO SCH (22:40)
[2017-04-07] MEDS ORDERED: APRESOLINE PO PRN (00:30)
[2017-04-07] MEDS: APRESOLINE IV PRN ×2 (01:42→19:40)
[2017-04-07] MEDS: NACL 0.45% 1000 ML 1,000 ML IV SCH (06:57)
[2017-04-07 07:19] LABS: Hematocrit 25.1 % (30.3-42.9); Hemoglobin 7.8 gm/dl (10.1-14.3); Mean Corpuscular HGB Conc 31 % (30-34); Platelet Count 343 K/mm3 (140-440); Red Blood Count 3.73 M/mm3 (3.65-5.03); White Blood Count 7.5 K/mm3 (4.5-11.0)
[2017-04-07 07:21] LABS: Mean Corpuscular Hemoglobin 21 pg (28-32); Mean Corpuscular Volume 67 fl (79-97); Red Cell Distribution Width 20.2 % (13.2-15.2)
[2017-04-07 07:26] LABS: INR 0.96 (0.87-1.13)
[2017-04-07 07:33] LABS: BUN/Creatinine Ratio 10.86; Calcium 8.1 mg/dL (8.4-10.2); Chloride 105.6 mmol/L (98-107); Potassium 3.1 mmol/L (3.6-5.0)
--- NOTE | 2017-04-07 08:38 | Progress Note ---
Assessment and Plan Impression: * Acute kidney injury - r/o vasculitis --baseline SCr 0.9mg.dL * Nephrotic range proteinuria UPCR 10grams * Anemia * Type II DM * Hypertension * Dementia Plan: * Renal function jremains above baseline * Renal bx ordered for today - cancelled due to inadequate staffing * Await UPEP/SPEP/SIFE * Avoid nephrotoxins * Dose medications for renal function * SNF placement per request of daughter Subjective Date of service: 04/07/17 Interval history: Patient has no complaints Objective - Vital Signs Vital signs: Vital Signs - 12hr 04/06/17 04/07/17 04/07/17 21:01 00:50 01:42 Temperature 99.1 F 98.9 F Pulse Rate 80 Pulse Rate [ Left Radial] Pulse Rate [ 62 80 Right] Respiratory 16 18 Rate Blood Pressure 179/103 Blood Pressure 191/98 179/103 [Right Arm] O2 Sat by Pulse 97 98 Oximetry 04/07/17 02:37 Temperature Pulse Rate Pulse Rate [ 80 Left Radial] Pulse Rate [ Right] Respiratory Rate Blood Pressure Blood Pressure [Right Arm] O2 Sat by Pulse Oximetry - General Appearance General appearance: well-developed, well-nourished EENT: ATNC Neck: no JVD Respiratory: Present: Clear to Ascultation Cardiology: regular, S1S2 Gastrointestinal: normal, no tenderness, no distended Integumentary: no rash Musculoskeletal: other (no edema) Psychiatric: cooperative - Lab 04/08/17 07:05 04/08/17 05:17 Most recent lab results Calcium 8.1 mg/dL (8.4-10.2) L 04/07/17 05:55 Urine Creatinine 50.5 mg/dL (0.1-20.0) H 04/05/17 08:40 Urine Total Protein 517 mg/dL (5-11.8) H 04/05/17 08:40
[2017-04-07] MEDS: NOVOLOG SUB-Q SCH ×4 (08:41→23:13)
[2017-04-07 08:44] LABS: Anisocytosis 1+; Basophils % (Manual) 0 % (0.0-1.8); Blastocytes % (Manual) 0 %; Eosinophils % (Manual) 0 % (0.0-4.3); Hypochromasia 2+; Microcytosis 1+; Polychromasia Few; Target Cells Few
[2017-04-07 08:45] LABS: Diff Status Complete
--- NOTE | 2017-04-07 09:53 | Progress Note ---
Assessment and Plan Assessment and plan: Acute renal failure. Etiology is secondary to acute kidney injury. We will rule out vasculitis. Patient's baseline creatinine is 0.9. Patient with nephrotic range proteinuria--UPCR 10 g. Renal biopsy planned for tomorrow. Await UPEP, SPEP and SIFE Nephrotic range proteinuria. As above. Anemia of chronic kidney disease. Follow H&H. Type 2 diabetes mellitus. Continue Accu-Cheks and sliding scale. Hypertension. Resume antihypertensive medications. Alzheimer's dementia. SNF placement per daughter's request. Continue Seroquel. Disposition. As above. History Interval history: No new issues overnight. Hospitalist Physical - Constitutional Vitals: Temp Pulse Resp BP Pulse Ox 98.2 F 72 18 189/94 99 04/07/17 07:00 04/07/17 07:00 04/07/17 07:00 04/07/17 07:00 04/07/17 07:00 General appearance: Present: no acute distress - EENT Eyes: Present: PERRL, EOM intact ENT: hearing intact, clear oral mucosa, dentition normal - Neck Neck: Present: supple, normal ROM - Respiratory Respiratory effort: normal Respiratory: bilateral: CTA - Cardiovascular Rhythm: regular Heart Sounds: Present: S1 & S2. Absent: gallop, rub - Extremities Extremities: no ischemia, No edema, Full ROM - Abdominal General gastrointestinal: soft, non-tender, non-distended, normal bowel sounds - Integumentary Integumentary: Present: clear, warm, dry - Neurologic Neurologic: CNII-XII intact, moves all extremities Results - Labs CBC & Chem 7: 04/07/17 05:55 04/07/17 05:55 Labs: Laboratory Last Values WBC 7.5 K/mm3 (4.5-11.0) 04/07/17 05:55 RBC 3.73 M/mm3 (3.65-5.03) 04/07/17 05:55 Hgb 7.8 gm/dl (10.1-14.3) L 04/07/17 05:55 Hct 25.1 % (30.3-42.9) L 04/07/17 05:55 MCV 67 fl (79-97) L 04/07/17 05:55 MCH 21 pg (28-32) L 04/07/17 05:55 MCHC 31 % (30-34) 04/07/17 05:55 RDW 20.2 % (13.2-15.2) H 04/07/17 05:55 Plt Count 343 K/mm3 (140-440) 04/07/17 05:55 Lymph % (Auto) 33.8 % (13.4-35.0) 04/06/17 08:46 [place] % (Auto) 6.0 % (0.0-7.3) 04/06/17 08:46 Eos % (Auto) 2.7 % (0.0-4.3) 04/06/17 08:46 Baso % (Auto) 0.9 % (0.0-1.8) 04/06/17 08:46 Lymph # 2.3 K/mm3 (1.2-5.4) 04/06/17 08:46 [place] # 0.4 K/mm3 (0.0-0.8) 04/06/17 08:46 Eos # 0.2 K/mm3 (0.0-0.4) 04/06/17 08:46 Baso # 0.1 K/mm3 (0.0-0.1) 04/06/17 08:46 Add Manual Diff Complete 04/07/17 05:55 Total Counted 100 04/07/17 05:55 Seg Neutrophils % 56.6 % (40.0-70.0) 04/06/17 08:46 Seg Neuts % (Manual) 85.0 % (40.0-70.0) H 04/07/17 05:55 Band Neutrophils % 0 % 04/07/17 05:55 Lymphocytes % (Manual) 11.0 % (13.4-35.0) L 04/07/17 05:55 Reactive Lymphs % (Man) 0 % 04/07/17 05:55 Monocytes % (Manual) 4.0 % (0.0-7.3) 04/07/17 05:55 Eosinophils % (Manual) 0 % (0.0-4.3) 04/07/17 05:55 Basophils % (Manual) 0 % (0.0-1.8) 04/07/17 05:55 Metamyelocytes % 0 % 04/07/17 05:55 Myelocytes % 0 % 04/07/17 05:55 Promyelocytes % 0 % 04/07/17 05:55 Blast Cells % 0 % 04/07/17 05:55 Nucleated RBC % Not Reportable 04/07/17 05:55 Seg Neutrophils # 3.8 K/mm3 (1.8-7.7) 04/06/17 08:46 Seg Neutrophils # Man 6.4 K/mm3 (1.8-7.7) 04/07/17 05:55 Band Neutrophils # 0.0 K/mm3 04/07/17 05:55 Lymphocytes # (Manual) 0.8 K/mm3 (1.2-5.4) L 04/07/17 05:55 Abs React Lymphs (Man) 0.0 K/mm3 04/07/17 05:55 Monocytes # (Manual) 0.3 K/mm3 (0.0-0.8) 04/07/17 05:55 Eosinophils # (Manual) 0.0 K/mm3 (0.0-0.4) 04/07/17 05:55 Basophils # (Manual) 0.0 K/mm3 (0.0-0.1) 04/07/17 05:55 Metamyelocytes # 0.0 K/mm3 04/07/17 05:55 Myelocytes # 0.0 K/mm3 04/07/17 05:55 Promyelocytes # 0.0 K/mm3 04/07/17 05:55 Blast Cells # 0.0 K/mm3 04/07/17 05:55 WBC Morphology Not Reportable 04/07/17 05:55 Hypersegmented Neuts Not Reportable 04/07/17 05:55 Hyposegmented Neuts Not Reportable 04/07/17 05:55 Hypogranular Neuts Not Reportable 04/07/17 05:55 Smudge Cells Not Reportable 04/07/17 05:55 Toxic Granulation Not Reportable 04/07/17 05:55 Toxic Vacuolation Not Reportable 04/07/17 05:55 Dohle Bodies Not Reportable 04/07/17 05:55 Pelger-Huet Anomaly Not Reportable 04/07/17 05:55 Dung Rods Not Reportable 04/07/17 05:55 Platelet Estimate Appears normal 04/07/17 05:55 Clumped Platelets Not Reportable 04/07/17 05:55 Plt Clumps, EDTA Not Reportable 04/07/17 05:55 Large Platelets Not Reportable 04/07/17 05:55 Giant Platelets Not Reportable 04/07/17 05:55 Platelet Satelliting Not Reportable 04/07/17 05:55 Plt Morphology Comment Not Reportable 04/07/17 05:55 RBC Morphology Not Reportable 04/07/17 05:55 Dimorphic RBCs Not Reportable 04/07/17 05:55 Polychromasia Few 04/07/17 05:55 Hypochromasia 2+ 04/07/17 05:55 Poikilocytosis Not Reportable 04/07/17 05:55 Anisocytosis 1+ 04/07/17 05:55 Microcytosis 1+ 04/07/17 05:55 Macrocytosis Not Reportable 04/07/17 05:55 Spherocytes Not Reportable 04/07/17 05:55 Pappenheimer Bodies Not Reportable 04/07/17 05:55 Sickle Cells Not Reportable 04/07/17 05:55 Target Cells Few 04/07/17 05:55 Tear Drop Cells Not Reportable 04/07/17 05:55 Ovalocytes Not Reportable 04/07/17 05:55 Helmet Cells Not Reportable 04/07/17 05:55 [place] Bodies Not Reportable 04/07/17 05:55 [place] Rings Not Reportable 04/07/17 05:55 Mega Cells Not Reportable 04/07/17 05:55 Bite Cells Not Reportable 04/07/17 05:55 Crenated Cell Not Reportable 04/07/17 05:55 Elliptocytes Not Reportable 04/07/17 05:55 Acanthocytes (Spur) Not Reportable 04/07/17 05:55 Rouleaux Not Reportable 04/07/17 05:55 Hemoglobin C Crystals Not Reportable 04/07/17 05:55 Schistocytes Not Reportable 04/07/17 05:55 Malaria parasites Not Reportable 04/07/17 05:55 Joe Bodies Not Reportable 04/07/17 05:55 Hem Pathologist Commnt No 04/07/17 05:55 PT 12.7 Sec. (12.2-14.9) 04/07/17 05:55 INR 0.96 (0.87-1.13) 04/07/17 05:55 Sodium 142 mmol/L (137-145) 04/06/17 08:46 Potassium 3.3 mmol/L (3.6-5.0) L 04/06/17 08:46 Chloride 105.8 mmol/L (98-107) 04/06/17 08:46 Carbon Dioxide 21 mmol/L (22-30) L 04/07/17 05:55 Anion Gap 17 mmol/L 04/06/17 08:46 BUN 25 mg/dL (7-17) H 04/07/17 05:55 Creatinine 2.3 mg/dL (0.7-1.2) H 04/07/17 05:55 Estimated GFR 26 ml/min 04/07/17 05:55 BUN/Creatinine Ratio 10.86 % 04/07/17 05:55 Glucose 133 mg/dL (65-100) H 04/07/17 05:55 POC Glucose 149 (70-105) H 04/07/17 06:40 Hemoglobin A1c < 4.2 % (4-6) 04/05/17 19:39 Calcium 8.1 mg/dL (8.4-10.2) L 04/07/17 05:55 Total Bilirubin < 0.20 mg/dL (0.1-1.2) 04/05/17 06:27 AST 24 units/L (5-40) 04/05/17 06:27 ALT 15 units/L (7-56) 04/05/17 06:27 Alkaline Phosphatase 84 units/L (35-129) 04/05/17 06:27 Total Protein 7.4 g/dL (6.3-8.2) 04/05/17 06:27 Albumin 3.0 g/dL (3.9-5) L 04/05/17 06:27 Albumin/Globulin Ratio 0.7 % 04/05/17 06:27 Urine Color Straw (Yellow) 04/05/17 09:42 Urine Turbidity Clear (Clear) 04/05/17 09:42 Urine pH 6.0 (5.0-7.0) 04/05/17 09:42 Ur Specific [place] 1.011 (1.003-1.030) 04/05/17 09:42 Urine Protein 100 mg/dl mg/dL (Negative) 04/05/17 09:42 Urine Glucose (UA) Neg mg/dL (Negative) 04/05/17 09:42 Urine Ketones Neg mg/dL (Negative) 04/05/17 09:42 Urine Blood Neg (Negative) 04/05/17 09:42 Urine Nitrite Neg (Negative) 04/05/17 09:42 Urine Bilirubin Neg (Negative) 04/05/17 09:42 Urine Urobilinogen < 2.0 mg/dL (<2.0) 04/05/17 09:42 Ur Leukocyte Esterase Mod (Negative) 04/05/17 09:42 Urine WBC (Auto) 26.0 /HPF (0.0-6.0) H 04/05/17 09:42 Urine RBC (Auto) 3.0 /HPF (0.0-6.0) 04/05/17 09:42 U Epithel Cells (Auto) < 1.0 /HPF (0-13.0) 04/05/17 09:42 Urine Bacteria (Auto) 4+ /HPF (Negative) 04/05/17 09:42 Urine Mucus Few /HPF 04/05/17 09:42 Urine Creatinine 50.5 mg/dL (0.1-20.0) H 04/05/17 08:40 Protein/Creatinin Ratio 10.24 04/05/17 08:40 Urine Total Protein 517 mg/dL (5-11.8) H 04/05/17 08:40 Blood Type O POSITIVE 04/05/17 06:27 STEPHANIE Antibody Screen Negative 04/05/17 06:27 Crossmatch See Detail 04/05/17 06:27
[2017-04-07] MEDS ORDERED: NON-FORMULARY (Amlodipine Besylate 10 MG) PO SCH (10:00)
[2017-04-07] MEDS ORDERED: NON-FORMULARY (Atorvastatin 20 MG) PO SCH (10:00)
[2017-04-07] MEDS ORDERED: HCTZ PO SCH (10:00)
[2017-04-07] MEDS: VITAMIN B-12 PO SCH (11:12)
[2017-04-07] MEDS: FEOSOL PO SCH (11:12)
[2017-04-07] MEDS: ARICEPT PO SCH (11:12)
[2017-04-07] MEDS: NORVASC PO SCH (11:21)
[2017-04-07] MEDS: DESYREL PO SCH (21:53)
[2017-04-07 22:52] LABS: Albumin 2.6 g/dL (3.8-4.8); Gamma Globulin 2.4 g/dL (0.8-1.7)
[2017-04-08 07:20] LABS: Hemoglobin 6.5 gm/dl (10.1-14.3); Mean Corpuscular HGB Conc 31 % (30-34); Platelet Count 281 K/mm3 (140-440); Red Blood Count 3.11 M/mm3 (3.65-5.03); White Blood Count 6.6 K/mm3 (4.5-11.0)
[2017-04-08 07:47] LABS: BUN/Creatinine Ratio 10.68; Calcium 8.2 mg/dL (8.4-10.2); Chloride 107.3 mmol/L (98-107); Potassium 3.5 mmol/L (3.6-5.0)
[2017-04-08 07:53] LABS: Mean Corpuscular Hemoglobin 21 pg (28-32); Mean Corpuscular Volume 68 fl (79-97); Red Cell Distribution Width 20.1 % (13.2-15.2)
[2017-04-08] MEDS: NOVOLOG SUB-Q SCH ×4 (08:31→23:06)
--- NOTE | 2017-04-08 09:15 | Progress Note ---
Assessment and Plan Impression: * Acute kidney injury - r/o vasculitis/glomorular disease --baseline SCr 0.9mg.dL --SPEP/SIFE negative; UPEP pending * Nephrotic range proteinuria UPCR 10grams - ?membranous * Anemia - worsening * Type II DM * Hypertension * Dementia Plan: * Patient with worsening renal function * Transfuse pRBC x 1 unit today; stool for occult blood and iron stores ordered * Renal bx today after pRBC transfusion - radiology staffing available * Avoid nephrotoxins * Dose medications for renal function * SNF placement per request of daughter * Possible d/c in AM pending stable renal function AND Hgb Subjective Date of service: 04/08/17 Interval history: Patient has no complaints Objective - Vital Signs Vital signs: Vital Signs - 12hr 04/07/17 04/08/17 21:49 00:15 Temperature 98.3 F Pulse Rate [ 98 H 87 Left Radial] Respiratory 18 Rate Blood Pressure 145/86 140/85 [Right Arm] O2 Sat by Pulse 99 Oximetry - General Appearance General appearance: well-developed, well-nourished EENT: ATNC Respiratory: Present: Clear to Ascultation Cardiology: regular, S1S2 Gastrointestinal: normal, no tenderness, no distended Integumentary: no rash Musculoskeletal: other (no edema) Psychiatric: cooperative - Lab 04/08/17 07:05 04/08/17 05:17 Most recent lab results Calcium 8.2 mg/dL (8.4-10.2) L 04/08/17 05:17 Urine Creatinine 50.5 mg/dL (0.1-20.0) H 04/05/17 08:40 Urine Total Protein 517 mg/dL (5-11.8) H 04/05/17 08:40
[2017-04-08] MEDS ORDERED: NACL 0.9% 500 ML 500 ML IV ONE (10:00)
[2017-04-08 10:06] LABS: Basophils % (Manual) 0 % (0.0-1.8); Blastocytes % (Manual) 0 %; Eosinophils % (Manual) 0 % (0.0-4.3)
[2017-04-08 10:07] LABS: Anisocytosis 1+; Hypochromasia 2+; Microcytosis 1+
[2017-04-08 10:08] LABS: Diff Status Complete; Platelet Estimate Cons
--- NOTE | 2017-04-08 10:39 | Progress Note ---
Assessment and Plan Assessment and plan: Acute renal failure. Etiology is secondary to acute kidney injury. We will rule out vasculitis. Patient's baseline creatinine is 0.9. Patient with nephrotic range proteinuria--UPCR 10 g. Renal biopsy planned for tomorrow. Await UPEP, SPEP and SIFE Nephrotic range proteinuria. As above. Anemia of chronic kidney disease. Hemoglobin is 6.5 today. Patient will receive 1 unit of PRBCs today. Type 2 diabetes mellitus. Continue Accu-Cheks and sliding scale. Hypertension. Resume antihypertensive medications. Alzheimer's dementia. SNF placement per daughter's request. Continue Seroquel. Disposition. As above. History Interval history: No new issues overnight. Hospitalist Physical - Constitutional Vitals: Temp Pulse Resp BP Pulse Ox 98.8 F 62 18 154/91 99 04/08/17 08:00 04/08/17 08:00 04/08/17 08:00 04/08/17 08:00 04/08/17 08:00 General appearance: Present: no acute distress - EENT Eyes: Present: PERRL, EOM intact ENT: hearing intact, clear oral mucosa, dentition normal - Neck Neck: Present: supple, normal ROM - Respiratory Respiratory effort: normal Respiratory: bilateral: CTA - Cardiovascular Rhythm: regular Heart Sounds: Present: S1 & S2. Absent: gallop, rub - Extremities Extremities: no ischemia, No edema, Full ROM - Abdominal General gastrointestinal: soft, non-tender, non-distended, normal bowel sounds - Integumentary Integumentary: Present: clear, warm, dry - Neurologic Neurologic: CNII-XII intact, moves all extremities Results - Labs CBC & Chem 7: 04/08/17 07:05 04/08/17 05:17 Labs: Laboratory Last Values WBC 6.6 K/mm3 (4.5-11.0) 04/08/17 07:05 RBC 3.11 M/mm3 (3.65-5.03) L 04/08/17 07:05 Hgb 6.5 gm/dl (10.1-14.3) L 04/08/17 07:05 Hct 21.0 % (30.3-42.9) L 04/08/17 07:05 MCV 68 fl (79-97) L 04/08/17 07:05 MCH 21 pg (28-32) L 04/08/17 07:05 MCHC 31 % (30-34) 04/08/17 07:05 RDW 20.1 % (13.2-15.2) H 04/08/17 07:05 Plt Count 281 K/mm3 (140-440) 04/08/17 07:05 Lymph % (Auto) Paper Reclaiming Machine Operator 04/08/17 07:05 [place] % (Auto) Paper Reclaiming Machine Operator 04/08/17 07:05 Eos % (Auto) Paper Reclaiming Machine Operator 04/08/17 07:05 Baso % (Auto) Paper Reclaiming Machine Operator 04/08/17 07:05 Lymph # Paper Reclaiming Machine Operator 04/08/17 07:05 [place] # Paper Reclaiming Machine Operator 04/08/17 07:05 Eos # Paper Reclaiming Machine Operator 04/08/17 07:05 Baso # Paper Reclaiming Machine Operator 04/08/17 07:05 Add Manual Diff Complete 04/08/17 07:05 Total Counted 100 04/08/17 07:05 Seg Neutrophils % Paper Reclaiming Machine Operator 04/08/17 07:05 Seg Neuts % (Manual) 59.0 % (40.0-70.0) 04/08/17 07:05 Band Neutrophils % 0 % 04/08/17 07:05 Lymphocytes % (Manual) 34.0 % (13.4-35.0) 04/08/17 07:05 Reactive Lymphs % (Man) 1.0 % 04/08/17 07:05 Monocytes % (Manual) 6.0 % (0.0-7.3) 04/08/17 07:05 Eosinophils % (Manual) 0 % (0.0-4.3) 04/08/17 07:05 Basophils % (Manual) 0 % (0.0-1.8) 04/08/17 07:05 Metamyelocytes % 0 % 04/08/17 07:05 Myelocytes % 0 % 04/08/17 07:05 Promyelocytes % 0 % 04/08/17 07:05 Blast Cells % 0 % 04/08/17 07:05 Nucleated RBC % Not Reportable 04/08/17 07:05 Seg Neutrophils # Paper Reclaiming Machine Operator 04/08/17 07:05 Seg Neutrophils # Man 3.9 K/mm3 (1.8-7.7) 04/08/17 07:05 Band Neutrophils # 0.0 K/mm3 04/08/17 07:05 Lymphocytes # (Manual) 2.2 K/mm3 (1.2-5.4) 04/08/17 07:05 Abs React Lymphs (Man) 0.1 K/mm3 04/08/17 07:05 Monocytes # (Manual) 0.4 K/mm3 (0.0-0.8) 04/08/17 07:05 Eosinophils # (Manual) 0.0 K/mm3 (0.0-0.4) 04/08/17 07:05 Basophils # (Manual) 0.0 K/mm3 (0.0-0.1) 04/08/17 07:05 Metamyelocytes # 0.0 K/mm3 04/08/17 07:05 Myelocytes # 0.0 K/mm3 04/08/17 07:05 Promyelocytes # 0.0 K/mm3 04/08/17 07:05 Blast Cells # 0.0 K/mm3 04/08/17 07:05 WBC Morphology Not Reportable 04/08/17 07:05 Hypersegmented Neuts Not Reportable 04/08/17 07:05 Hyposegmented Neuts Not Reportable 04/08/17 07:05 Hypogranular Neuts Not Reportable 04/08/17 07:05 Smudge Cells Not Reportable 04/08/17 07:05 Toxic Granulation Not Reportable 04/08/17 07:05 Toxic Vacuolation Not Reportable 04/08/17 07:05 Dohle Bodies Not Reportable 04/08/17 07:05 Pelger-Huet Anomaly Not Reportable 04/08/17 07:05 Dung Rods Not Reportable 04/08/17 07:05 Platelet Estimate Cons 04/08/17 07:05 Clumped Platelets Not Reportable 04/08/17 07:05 Plt Clumps, EDTA Not Reportable 04/08/17 07:05 Large Platelets Not Reportable 04/08/17 07:05 Giant Platelets Not Reportable 04/08/17 07:05 Platelet Satelliting Not Reportable 04/08/17 07:05 Plt Morphology Comment Not Reportable 04/08/17 07:05 RBC Morphology Not Reportable 04/08/17 07:05 Dimorphic RBCs Not Reportable 04/08/17 07:05 Polychromasia Not Reportable 04/08/17 07:05 Hypochromasia 2+ 04/08/17 07:05 Poikilocytosis Not Reportable 04/08/17 07:05 Anisocytosis 1+ 04/08/17 07:05 Microcytosis 1+ 04/08/17 07:05 Macrocytosis Not Reportable 04/08/17 07:05 Spherocytes Not Reportable 04/08/17 07:05 Pappenheimer Bodies Not Reportable 04/08/17 07:05 Sickle Cells Not Reportable 04/08/17 07:05 Target Cells Not Reportable 04/08/17 07:05 Tear Drop Cells Not Reportable 04/08/17 07:05 Ovalocytes Not Reportable 04/08/17 07:05 Helmet Cells Not Reportable 04/08/17 07:05 Pineda-[place] Bodies Not Reportable 04/08/17 07:05 [place] Rings Not Reportable 04/08/17 07:05 [place] Cells Not Reportable 04/08/17 07:05 Bite Cells Not Reportable 04/08/17 07:05 Crenated Cell Not Reportable 04/08/17 07:05 Elliptocytes Not Reportable 04/08/17 07:05 Acanthocytes (Spur) Not Reportable 04/08/17 07:05 Rouleaux Not Reportable 04/08/17 07:05 Hemoglobin C Crystals Not Reportable 04/08/17 07:05 Schistocytes Not Reportable 04/08/17 07:05 Malaria parasites Not Reportable 04/08/17 07:05 Joe Bodies Not Reportable 04/08/17 07:05 Hem Pathologist Commnt No 04/08/17 07:05 PT 12.7 Sec. (12.2-14.9) 04/07/17 05:55 INR 0.96 (0.87-1.13) 04/07/17 05:55 Sodium 142 mmol/L (137-145) 04/08/17 05:17 Potassium 3.5 mmol/L (3.6-5.0) L 04/08/17 05:17 Chloride 107.3 mmol/L (98-107) H 04/08/17 05:17 Carbon Dioxide 18 mmol/L (22-30) L 04/08/17 05:17 Anion Gap 20 mmol/L 04/08/17 05:17 BUN 31 mg/dL (7-17) H 04/08/17 05:17 Creatinine 2.9 mg/dL (0.7-1.2) H 04/08/17 05:17 Estimated GFR 20 ml/min 04/08/17 05:17 BUN/Creatinine Ratio 10.68 % 04/08/17 05:17 Glucose 97 mg/dL (65-100) 04/08/17 05:17 POC Glucose 102 (70-105) 04/08/17 06:22 Hemoglobin A1c < 4.2 % (4-6) 04/05/17 19:39 Calcium 8.2 mg/dL (8.4-10.2) L 04/08/17 05:17 Iron 28 ug/dL (37-170) L 04/08/17 09:28 TIBC 280.00 mcg/dL (250-450) 04/08/17 09:28 % Saturation 10.00 % 04/08/17 09:28 Transferrin 200 mg/dl (192-382) 04/08/17 09:28 Ferritin 24.6 ng/mL (13.0-400.0) 04/08/17 09:28 Total Bilirubin < 0.20 mg/dL (0.1-1.2) 04/05/17 06:27 AST 24 units/L (5-40) 04/05/17 06:27 ALT 15 units/L (7-56) 04/05/17 06:27 Alkaline Phosphatase 84 units/L (35-129) 04/05/17 06:27 Serum Total Protein 7.5 g/dL (6.1-8.1) 04/05/17 06:27 Total Protein 7.4 g/dL (6.3-8.2) 04/05/17 06:27 Albumin 2.6 g/dL (3.8-4.8) L 04/05/17 06:27 Albumin/Globulin Ratio 0.7 % 04/05/17 06:27 Hujwb-9-Hinufryvz 0.3 g/dL (0.2-0.3) 04/05/17 06:27 Dutsa-5-Vsamixztg 1.3 g/dL (0.5-0.9) H 04/05/17 06:27 Beta Globulins 0.4 g/dL (0.2-0.5) 04/05/17 06:27 Gamma Globulins 2.4 g/dL (0.8-1.7) H 04/05/17 06:27 Abnorm Protein Band 1 see below 04/05/17 06:27 PEP Interpretation see below H 04/05/17 06:27 Urine Color Straw (Yellow) 04/05/17 09:42 Urine Turbidity Clear (Clear) 04/05/17 09:42 Urine pH 6.0 (5.0-7.0) 04/05/17 09:42 Ur Specific [place] 1.011 (1.003-1.030) 04/05/17 09:42 Urine Protein 100 mg/dl mg/dL (Negative) 04/05/17 09:42 Urine Glucose (UA) Neg mg/dL (Negative) 04/05/17 09:42 Urine Ketones Neg mg/dL (Negative) 04/05/17 09:42 Urine Blood Neg (Negative) 04/05/17 09:42 Urine Nitrite Neg (Negative) 04/05/17 09:42 Urine Bilirubin Neg (Negative) 04/05/17 09:42 Urine Urobilinogen < 2.0 mg/dL (<2.0) 04/05/17 09:42 Ur Leukocyte Esterase Mod (Negative) 04/05/17 09:42 Urine WBC (Auto) 26.0 /HPF (0.0-6.0) H 04/05/17 09:42 Urine RBC (Auto) 3.0 /HPF (0.0-6.0) 04/05/17 09:42 U Epithel Cells (Auto) < 1.0 /HPF (0-13.0) 04/05/17 09:42 Urine Bacteria (Auto) 4+ /HPF (Negative) 04/05/17 09:42 Urine Mucus Few /HPF 04/05/17 09:42 Urine Creatinine 50.5 mg/dL (0.1-20.0) H 04/05/17 08:40 Protein/Creatinin Ratio 10.24 04/05/17 08:40 Urine Total Protein 517 mg/dL (5-11.8) H 04/05/17 08:40 Immunofix Electrophor see below 04/05/17 06:27 Blood Type O POSITIVE 04/05/17 06:27 STEPHANIE Antibody Screen Negative 04/05/17 06:27 Crossmatch See Detail 04/05/17 06:27
[2017-04-08] MEDS: TYLENOL PO PRN (11:02)
[2017-04-08] MEDS: APRESOLINE IV PRN ×2 (11:04→14:05)
[2017-04-08] MEDS: FEOSOL PO SCH (11:36)
[2017-04-08] MEDS: NORVASC PO SCH (11:36)
[2017-04-08] MEDS: VITAMIN B-12 PO SCH (11:36)
[2017-04-08] MEDS: ARICEPT PO SCH (11:36)
[2017-04-08] MEDS ORDERED: SUBLIMAZE ONE (12:55)
[2017-04-08] MEDS ORDERED: VERSED IV ONE ×2 (12:55→14:00)
[2017-04-08] MEDS ORDERED: APRESOLINE ONE (14:00)
[2017-04-08] MEDS ORDERED: SUBLIMAZE IV ONE (14:00)
--- NOTE | 2017-04-08 14:31 | Discharge Summary ---
Providers - Providers Date of Admission: 04/04/17 16:06 Date of discharge: 04/09/17 Attending physician: ALEKSEY OWEN 04/04/17 20:56 Consult to Case Management [CONS] Routine Services Needed at Discharge: Other Notified:: COPY OF GIVEN TO CM Additional Physician Instructions: Pt family requests SNF Placement with Dementia Unit. Please send out today. 04/04/17 21:00 Physical Therapy Evaluation and Treat [CONS] Routine Comment: Reason For Exam: weakness Primary care physician: SETH GE Hospitalization Hospital course: Mrs. Gregory is a 66yo with hypertension and DM who presented to nephrology clinic appt for follow up visit. She was initially referred by her PCP Dr. Ge, for microalbuminuria. At initial visit, her SCr was 0.9mg/dL. However , follow up labs were notable for SCr 2.7mg/dL and UPCR 10grams. Patient also with decline in Hb to 7.1. Patient was admitted to the hospital for further evaluation of acute renal failure/ROXANN. Patient was seen by nephrology consultation. Patient received IV fluid hydration with no significant improvement in her creatinine. 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 Patient underwent multiple studies including SPEP/UPEP/SIFE and renal biopsy which are all pending. Patient required transfusion of packed red blood cells. Studies for stool occult blood and iron studies are also pending. Patient will be discharged in a.m. if stable to follow up as an outpatient with nephrology. Case management was consulted for arrangement of SNF placement for discharge. Dedicated discharge time 35 minutes. Disposition: DC/TX SNF W [facility] CERT Time spent for discharge: 35 Core Measure Documentation - Palliative Care Palliative Care/ Comfort Measures: Not Applicable - Core Measures Any of the following diagnoses?: none Exam - Constitutional Vitals: Temp Pulse Resp BP Pulse Ox 98.6 F 109 H 20 139/84 99 04/08/17 13:31 04/08/17 14:10 04/08/17 14:10 04/08/17 14:10 04/08/17 14:10 General appearance: Present: no acute distress, well-nourished - EENT Eyes: Present: PERRL ENT: hearing intact, clear oral mucosa - Neck Neck: Present: supple, normal ROM - Respiratory Respiratory effort: normal Respiratory: bilateral: CTA - Cardiovascular Heart Sounds: Present: S1 & S2. Absent: rub, click - Extremities Extremities: pulses symmetrical, No edema Peripheral Pulses: within normal limits - Abdominal General gastrointestinal: Present: soft, non-tender, non-distended, normal bowel sounds Female genitourinary: Present: normal - Integumentary Integumentary: Present: clear, warm, dry - Musculoskeletal Musculoskeletal: gait normal, strength equal bilaterally - Psychiatric Psychiatric: appropriate mood/affect, intact judgment & insight - Neurologic Neurologic: CNII-XII intact, moves all extremities Plan Activity: no restrictions Weight Bearing Status: Full Weight Bearing Diet: renal Follow up with: SETH GE MD [Primary Care Provider] - 7 Days ENRRIQUE HUNTER MD [Staff Physician] - 7 Days Prescriptions: amLODIPine [Norvasc] 10 mg PO DAILY #30 tablet AtorvaSTATin [Lipitor] 20 mg PO QHS #30 tablet Cyanocobalamin (Vitamin B-12) [B-12] 1,000 mcg PO DAILY #30 tablet Donepezil [Aricept] 10 mg PO DAILY #30 tablet Ferrous Sulfate [Feosol 325 MG tab] 325 mg PO QDAY #30 tablet Ibandronate Sodium [Boniva] 150 mg PO QMONTH #1 tablet QUEtiapine [SEROquel] 25 mg PO QHS #30 tablet traZODone [Desyrel] 100 mg PO QHS #30 tablet
[2017-04-08 20:16] LABS: Hemoglobin 9.2 gm/dl (10.1-14.3)
[2017-04-08] MEDS: DESYREL PO SCH (22:03)
[2017-04-08] MEDS: VENOFER 100 MG in NACL 0.9% 50 ML IV SCH (22:58)
[2017-04-09 03:52] LABS: Basophils % (Auto) 0.7 % (0.0-1.8); Eosinophils % (Auto) 1.6 % (0.0-4.3); Hematocrit 24.8 % (30.3-42.9); Hemoglobin 7.8 gm/dl (10.1-14.3); Mean Corpuscular HGB Conc 32 % (30-34); Mean Corpuscular Volume 70 fl (79-97); Platelet Count 288 K/mm3 (140-440); Red Blood Count 3.53 M/mm3 (3.65-5.03); White Blood Count 8.4 K/mm3 (4.5-11.0)
[2017-04-09 04:14] LABS: BUN/Creatinine Ratio 10.71; Calcium 7.6 mg/dL (8.4-10.2)
[2017-04-09 04:24] LABS: Mean Corpuscular Hemoglobin 22 pg (28-32); Red Cell Distribution Width 21.7 % (13.2-15.2)
[2017-04-09] MEDS: APRESOLINE IV PRN ×3 (04:57→18:40)
[2017-04-09] MEDS ORDERED: NACL 0.9% 500 ML 500 ML IV ONE ×2 (05:07→05:14)
[2017-04-09] MEDS: NORVASC PO SCH ×2 (06:29→14:17)
--- NOTE | 2017-04-09 09:33 | Cat Scan Report ---
CT BIOPSY RENAL LEFT HISTORY: Proteinuria, acute renal insufficiency. DESCRIPTION OF PROCEDURE: Informed consent was obtained. Sterile technique was utilized. Conscious sedation was accomplished with Versed and fentanyl. Hydralazine was also used for blood pressure control. Independent cardiorespiratory monitoring by RN. The patient was sedated for 15 minutes. Intra-observer time of [address] guidance, a 17-gauge introducer needle was advanced to the inferior pole of the left kidney. 2 separate 18-gauge core biopsies were obtained. Post biopsy scanning demonstrated a small amount of hemorrhage at the biopsy site but no uncontained hemorrhage. The patient tolerated the procedure well. Impression: Successful CT-guided biopsy at the inferior pole of the left kidney.
[2017-04-09] MEDS: VITAMIN B-12 PO SCH (09:47)
[2017-04-09] MEDS: VENOFER 100 MG in NACL 0.9% 50 ML IV SCH (09:47)
[2017-04-09] MEDS: FEOSOL PO SCH (09:47)
[2017-04-09] MEDS: ARICEPT PO SCH (09:47)
--- NOTE | 2017-04-09 11:13 | Progress Note ---
Assessment and Plan Assessment and plan: Acute renal failure. Etiology is secondary to acute kidney injury. We will rule out vasculitis. Patient's baseline creatinine is 0.9. Patient with nephrotic range proteinuria--UPCR 10 g. Renal biopsy completed. Await UPEP, SPEP and SIFE Nephrotic range proteinuria. As above. Anemia of chronic kidney disease. Cont. PRBCs and check H/H post transfusion Type 2 diabetes mellitus. Continue Accu-Cheks and sliding scale. Hypertension. Resume antihypertensive medications. Alzheimer's dementia. SNF placement pending. Continue Seroquel. Disposition. As above. History Interval history: No new issues overnight. Discharge is being held due to PRBCs not completed yet Hospitalist Physical - Constitutional Vitals: Temp Pulse Resp BP Pulse Ox 99.7 F H 96 H 19 180/86 98 04/09/17 07:00 04/09/17 09:48 04/09/17 07:00 04/09/17 09:48 04/09/17 07:00 General appearance: Present: no acute distress, well-nourished - EENT Eyes: Present: PERRL, EOM intact ENT: hearing intact, clear oral mucosa, dentition normal - Neck Neck: Present: supple, normal ROM - Respiratory Respiratory effort: normal Respiratory: bilateral: CTA - Cardiovascular Rhythm: regular Heart Sounds: Present: S1 & S2. Absent: gallop, rub - Extremities Extremities: no ischemia, No edema, Full ROM - Abdominal General gastrointestinal: soft, non-tender, non-distended, normal bowel sounds - Integumentary Integumentary: Present: clear, warm, dry - Neurologic Neurologic: CNII-XII intact, moves all extremities Results - Labs CBC & Chem 7: 04/09/17 03:38 04/09/17 03:31 Labs: Laboratory Last Values WBC 8.4 K/mm3 (4.5-11.0) 04/09/17 03:38 RBC 3.53 M/mm3 (3.65-5.03) L 04/09/17 03:38 Hgb 7.8 gm/dl (10.1-14.3) L 04/09/17 03:38 Hct 24.8 % (30.3-42.9) L 04/09/17 03:38 MCV 70 fl (79-97) L 04/09/17 03:38 MCH 22 pg (28-32) L 04/09/17 03:38 MCHC 32 % (30-34) 04/09/17 03:38 RDW 21.7 % (13.2-15.2) H 04/09/17 03:38 Plt Count 288 K/mm3 (140-440) 04/09/17 03:38 Lymph % (Auto) 23.2 % (13.4-35.0) 04/09/17 03:38 [place] % (Auto) 7.3 % (0.0-7.3) 04/09/17 03:38 Eos % (Auto) 1.6 % (0.0-4.3) 04/09/17 03:38 Baso % (Auto) 0.7 % (0.0-1.8) 04/09/17 03:38 Lymph # 2.0 K/mm3 (1.2-5.4) 04/09/17 03:38 [place] # 0.6 K/mm3 (0.0-0.8) 04/09/17 03:38 Eos # 0.1 K/mm3 (0.0-0.4) 04/09/17 03:38 Baso # 0.1 K/mm3 (0.0-0.1) 04/09/17 03:38 Add Manual Diff Complete 04/08/17 07:05 Total Counted 100 04/08/17 07:05 Seg Neutrophils % 67.2 % (40.0-70.0) 04/09/17 03:38 Seg Neuts % (Manual) 59.0 % (40.0-70.0) 04/08/17 07:05 Band Neutrophils % 0 % 04/08/17 07:05 Lymphocytes % (Manual) 34.0 % (13.4-35.0) 04/08/17 07:05 Reactive Lymphs % (Man) 1.0 % 04/08/17 07:05 Monocytes % (Manual) 6.0 % (0.0-7.3) 04/08/17 07:05 Eosinophils % (Manual) 0 % (0.0-4.3) 04/08/17 07:05 Basophils % (Manual) 0 % (0.0-1.8) 04/08/17 07:05 Metamyelocytes % 0 % 04/08/17 07:05 Myelocytes % 0 % 04/08/17 07:05 Promyelocytes % 0 % 04/08/17 07:05 Blast Cells % 0 % 04/08/17 07:05 Nucleated RBC % Not Reportable 04/08/17 07:05 Seg Neutrophils # 5.6 K/mm3 (1.8-7.7) 04/09/17 03:38 Seg Neutrophils # Man 3.9 K/mm3 (1.8-7.7) 04/08/17 07:05 Band Neutrophils # 0.0 K/mm3 04/08/17 07:05 Lymphocytes # (Manual) 2.2 K/mm3 (1.2-5.4) 04/08/17 07:05 Abs React Lymphs (Man) 0.1 K/mm3 04/08/17 07:05 Monocytes # (Manual) 0.4 K/mm3 (0.0-0.8) 04/08/17 07:05 Eosinophils # (Manual) 0.0 K/mm3 (0.0-0.4) 04/08/17 07:05 Basophils # (Manual) 0.0 K/mm3 (0.0-0.1) 04/08/17 07:05 Metamyelocytes # 0.0 K/mm3 04/08/17 07:05 Myelocytes # 0.0 K/mm3 04/08/17 07:05 Promyelocytes # 0.0 K/mm3 04/08/17 07:05 Blast Cells # 0.0 K/mm3 04/08/17 07:05 WBC Morphology Not Reportable 04/08/17 07:05 Hypersegmented Neuts Not Reportable 04/08/17 07:05 Hyposegmented Neuts Not Reportable 04/08/17 07:05 Hypogranular Neuts Not Reportable 04/08/17 07:05 Smudge Cells Not Reportable 04/08/17 07:05 Toxic Granulation Not Reportable 04/08/17 07:05 Toxic Vacuolation Not Reportable 04/08/17 07:05 Dohle Bodies Not Reportable 04/08/17 07:05 Pelger-Huet Anomaly Not Reportable 04/08/17 07:05 Dung Rods Not Reportable 04/08/17 07:05 Platelet Estimate Cons 04/08/17 07:05 Clumped Platelets Not Reportable 04/08/17 07:05 Plt Clumps, EDTA Not Reportable 04/08/17 07:05 Large Platelets Not Reportable 04/08/17 07:05 Giant Platelets Not Reportable 04/08/17 07:05 Platelet Satelliting Not Reportable 04/08/17 07:05 Plt Morphology Comment Not Reportable 04/08/17 07:05 RBC Morphology Not Reportable 04/08/17 07:05 Dimorphic RBCs Not Reportable 04/08/17 07:05 Polychromasia Not Reportable 04/08/17 07:05 Hypochromasia 2+ 04/08/17 07:05 Poikilocytosis Not Reportable 04/08/17 07:05 Anisocytosis 1+ 04/08/17 07:05 Microcytosis 1+ 04/08/17 07:05 Macrocytosis Not Reportable 04/08/17 07:05 Spherocytes Not Reportable 04/08/17 07:05 Pappenheimer Bodies Not Reportable 04/08/17 07:05 Sickle Cells Not Reportable 04/08/17 07:05 Target Cells Not Reportable 04/08/17 07:05 Tear Drop Cells Not Reportable 04/08/17 07:05 Ovalocytes Not Reportable 04/08/17 07:05 Helmet Cells Not Reportable 04/08/17 07:05 Pineda-[place] Bodies Not Reportable 04/08/17 07:05 [place] Rings Not Reportable 04/08/17 07:05 [place] Cells Not Reportable 04/08/17 07:05 Bite Cells Not Reportable 04/08/17 07:05 Crenated Cell Not Reportable 04/08/17 07:05 Elliptocytes Not Reportable 04/08/17 07:05 Acanthocytes (Spur) Not Reportable 04/08/17 07:05 Rouleaux Not Reportable 04/08/17 07:05 Hemoglobin C Crystals Not Reportable 04/08/17 07:05 Schistocytes Not Reportable 04/08/17 07:05 Malaria parasites Not Reportable 04/08/17 07:05 Joe Bodies Not Reportable 04/08/17 07:05 Hem Pathologist Commnt No 04/08/17 07:05 PT 12.7 Sec. (12.2-14.9) 04/07/17 05:55 INR 0.96 (0.87-1.13) 05/11/17 05:55 Sodium 140 mmol/L (137-145) 04/09/17 03:31 Potassium 3.0 mmol/L (3.6-5.0) L 04/09/17 03:31 Chloride 108.0 mmol/L (98-107) H 04/09/17 03:31 Carbon Dioxide 20 mmol/L (22-30) L 04/09/17 03:31 Anion Gap 15 mmol/L 04/09/17 03:31 BUN 30 mg/dL (7-17) H 04/09/17 03:31 Creatinine 2.8 mg/dL (0.7-1.2) H 04/09/17 03:31 Estimated GFR 20 ml/min 04/09/17 03:31 BUN/Creatinine Ratio 10.71 % 04/09/17 03:31 Glucose 62 mg/dL (65-100) L 04/09/17 03:31 POC Glucose 73 (70-105) 04/09/17 06:21 Hemoglobin A1c < 4.2 % (4-6) 04/05/17 19:39 Calcium 7.6 mg/dL (8.4-10.2) L 04/09/17 03:31 Iron 28 ug/dL (37-170) L 04/08/17 09:28 TIBC 280.00 mcg/dL (250-450) 04/08/17 09:28 % Saturation 10.00 % 04/08/17 09:28 Transferrin 200 mg/dl (192-382) 04/08/17 09:28 Ferritin 24.6 ng/mL (13.0-400.0) 04/08/17 09:28 Total Bilirubin < 0.20 mg/dL (0.1-1.2) 04/05/17 06:27 AST 24 units/L (5-40) 04/05/17 06:27 ALT 15 units/L (7-56) 04/05/17 06:27 Alkaline Phosphatase 84 units/L (35-129) 04/05/17 06:27 Serum Total Protein 7.5 g/dL (6.1-8.1) 04/05/17 06:27 Total Protein 7.4 g/dL (6.3-8.2) 04/05/17 06:27 Albumin 2.6 g/dL (3.8-4.8) L 04/05/17 06:27 Albumin/Globulin Ratio 0.7 % 04/05/17 06:27 Igbzd-9-Jahqsmswd 0.3 g/dL (0.2-0.3) 04/05/17 06:27 Mtcor-4-Nsanqarox 1.3 g/dL (0.5-0.9) H 04/05/17 06:27 Beta Globulins 0.4 g/dL (0.2-0.5) 04/05/17 06:27 Gamma Globulins 2.4 g/dL (0.8-1.7) H 04/05/17 06:27 Abnorm Protein Band 1 see below 04/05/17 06:27 PEP Interpretation see below H 04/05/17 06:27 Urine Color Straw (Yellow) 04/05/17 09:42 Urine Turbidity Clear (Clear) 04/05/17 09:42 Urine pH 6.0 (5.0-7.0) 04/05/17 09:42 Ur Specific [place] 1.011 (1.003-1.030) 04/05/17 09:42 Urine Protein 100 mg/dl mg/dL (Negative) 04/05/17 09:42 Urine Glucose (UA) Neg mg/dL (Negative) 04/05/17 09:42 Urine Ketones Neg mg/dL (Negative) 04/05/17 09:42 Urine Blood Neg (Negative) 04/05/17 09:42 Urine Nitrite Neg (Negative) 04/05/17 09:42 Urine Bilirubin Neg (Negative) 04/05/17 09:42 Urine Urobilinogen < 2.0 mg/dL (<2.0) 04/05/17 09:42 Ur Leukocyte Esterase Mod (Negative) 04/05/17 09:42 Urine WBC (Auto) 26.0 /HPF (0.0-6.0) H 04/05/17 09:42 Urine RBC (Auto) 3.0 /HPF (0.0-6.0) 04/05/17 09:42 U Epithel Cells (Auto) < 1.0 /HPF (0-13.0) 04/05/17 09:42 Urine Bacteria (Auto) 4+ /HPF (Negative) 04/05/17 09:42 Urine Mucus Few /HPF 04/05/17 09:42 Urine Creatinine 50.5 mg/dL (0.1-20.0) H 04/05/17 08:40 Protein/Creatinin Ratio 10.24 04/05/17 08:40 Urine Sodium 96 mEq/L 04/05/17 09:45 Urine Total Protein 517 mg/dL (5-11.8) H 04/05/17 08:40 Immunofix Electrophor see below 04/05/17 06:27 Blood Type O POSITIVE 04/08/17 09:28 Antibody Screen Not Reportable 04/08/17 09:28 STEPHANIE Antibody Screen Negative 04/08/17 09:28 Crossmatch See Detail 04/08/17 09:28
[2017-04-09] MEDS ORDERED: NACL 0.9% 250ML 250 ML ONE (11:18)
[2017-04-09] MEDS: NOVOLOG SUB-Q SCH ×4 (12:40→22:01)
--- NOTE | 2017-04-09 13:49 | Progress Note ---
Assessment and Plan Impression: * Acute kidney injury - r/o vasculitis/glomorular disease --baseline SCr 0.9mg.dL --SPEP/SIFE negative; UPEP pending * Nephrotic range proteinuria UPCR 10grams - ?membranous * Anemia * Type II DM * Hypertension--accelerated * Dementia Plan: * Patient with stable renal function * s/p renal biopsy * control bp today * replete lytes prn, add kdur and check mag * s/p Transfuse pRBC x 1 unit * Avoid nephrotoxins * Dose medications for renal function * SNF placement per request of daughter * daily cbc/lytes Subjective Date of service: 04/09/17 Principal diagnosis: mathew Interval history: resting well in bed today, events noted Objective - Exam Narrative Exam: General appearance: well-developed, well-nourished EENT: ATNC Respiratory: Present: Clear to Ascultation Cardiology: regular, S1S2 Gastrointestinal: normal, no tenderness, no distended Integumentary: no rash Musculoskeletal: other (no edema) Psychiatric: cooperative - Vital Signs Vital signs: Vital Signs - 12hr 04/09/17 04/09/17 04/09/17 04:56 06:15 07:00 Temperature 98.7 F 98.7 F 99.7 F H Pulse Rate Pulse Rate [ Left Radial] Pulse Rate [ 81 75 96 H Right Radial] Respiratory 18 18 19 Rate Blood Pressure Blood Pressure [Left Arm] Blood Pressure 185/105 187/88 180/86 [Right Arm] O2 Sat by Pulse 98 95 98 Oximetry 04/09/17 04/09/17 04/09/17 09:48 11:31 13:06 Temperature Pulse Rate 96 H 96 H Pulse Rate [ 115 H Left Radial] Pulse Rate [ Right Radial] Respiratory Rate Blood Pressure 180/86 180/86 Blood Pressure 146/82 [Left Arm] Blood Pressure [Right Arm] O2 Sat by Pulse Oximetry - Lab 04/09/17 03:38 04/09/17 03:31 Most recent lab results Calcium 7.6 mg/dL (8.4-10.2) L 04/09/17 03:31 Urine Creatinine 50.5 mg/dL (0.1-20.0) H 04/05/17 08:40 Urine Sodium 96 mEq/L 04/05/17 09:45 Urine Total Protein 517 mg/dL (5-11.8) H 04/05/17 08:40
[2017-04-09] MEDS ORDERED: K-DUR PO ONE (14:05)
[2017-04-09] MEDS: APRESOLINE PO SCH ×2 (14:25→22:08)
[2017-04-09] MEDS: CATAPRES PO SCH ×2 (14:27→22:07)
[2017-04-09] MEDS ORDERED: MAGNESIUM SULFATE 2GM/50ML 2 GM/50 ML BAG IV SCH (14:41)
[2017-04-09] MEDS ORDERED: KCL 10MEQ/100ML 10 MEQ/100 ML BAG IV ONE (14:42)
[2017-04-09] MEDS ORDERED: NACL 0.45% IV SCH (14:42)
[2017-04-09] MEDS ORDERED: KCL IV SCH (14:42)
[2017-04-09] MEDS ORDERED: TYLENOL PO ONE (15:00)
[2017-04-09] MEDS: NACL 0.45% IV SCH (15:52)
[2017-04-09] MEDS: KCL IV SCH (15:52)
[2017-04-09] MEDS: DESYREL PO SCH (22:07)
[2017-04-10] MEDS: APRESOLINE PO SCH ×2 (06:10→14:14)
[2017-04-10 06:33] LABS: Basophils % (Auto) 0.9 % (0.0-1.8); Eosinophils % (Auto) 2.1 % (0.0-4.3); Hematocrit 35.5 % (30.3-42.9); Hemoglobin 11.4 gm/dl (10.1-14.3); Mean Corpuscular HGB Conc 32 % (30-34); Mean Corpuscular Volume 75 fl (79-97); Platelet Count 292 K/mm3 (140-440); Red Blood Count 4.73 M/mm3 (3.65-5.03); White Blood Count 7.5 K/mm3 (4.5-11.0)
[2017-04-10 06:34] LABS: Mean Corpuscular Hemoglobin 24 pg (28-32)
[2017-04-10 06:48] LABS: BUN/Creatinine Ratio 9.61; Calcium 8.4 mg/dL (8.4-10.2); Chloride 107.7 mmol/L (98-107)
[2017-04-10] MEDS: NOVOLOG SUB-Q SCH ×3 (07:27→16:44)
[2017-04-10 07:36] LABS: Potassium 3.7 mmol/L (3.6-5.0)
[2017-04-10] MEDS ORDERED: MAGNESIUM SULFATE 2GM/50ML 2 GM/50 ML BAG IV ONE (10:31)
--- NOTE | 2017-04-10 10:31 | Progress Note ---
Assessment and Plan Impression: * Acute kidney injury - r/o vasculitis/glomorular disease --baseline SCr 0.9mg.dL --SPEP/SIFE negative; UPEP pending * Nephrotic range proteinuria UPCR 10grams - ?membranous * Anemia * Type II DM * Hypertension--accelerated * Dementia * metabolic acidosis Plan: * Patient with stable renal function * s/p renal biopsy * control bp today * co2 17, add po bicarb * replete lytes prn, add kdur and check mag * s/p Transfuse pRBC x 1 unit * Avoid nephrotoxins * Dose medications for renal function * SNF placement per request of daughter * daily cbc/lytes Subjective Date of service: 04/10/17 Principal diagnosis: mathew Interval history: resting well in bed today, events noted Objective - Exam Narrative Exam: General appearance: well-developed, well-nourished EENT: ATNC Respiratory: Present: Clear to Ascultation Cardiology: regular, S1S2 Gastrointestinal: normal, no tenderness, no distended Integumentary: no rash Musculoskeletal: other (no edema) Psychiatric: cooperative - Vital Signs Vital signs: Vital Signs - 12hr 04/09/17 04/09/17 04/09/17 22:42 22:57 23:25 Temperature 99.6 F 98.3 F 97.9 F Pulse Rate 70 63 56 L Pulse Rate [ Right Radial] Respiratory 18 18 16 Rate Blood Pressure 162/87 145/79 129/71 Blood Pressure [Left Arm] Blood Pressure [Right Arm] O2 Sat by Pulse 99 99 100 Oximetry 04/09/17 04/10/17 04/10/17 23:57 01:57 02:00 Temperature 98.0 F 98.1 F 98.2 F Pulse Rate 57 L 61 64 Pulse Rate [ Right Radial] Respiratory 18 18 18 Rate Blood Pressure 144/81 172/90 179/89 Blood Pressure [Left Arm] Blood Pressure [Right Arm] O2 Sat by Pulse 100 100 100 Oximetry 04/10/17 04/10/17 04/10/17 04:20 06:10 08:10 Temperature 97.8 F 97.9 F Pulse Rate 65 Pulse Rate [ 62 76 Right Radial] Respiratory 18 20 Rate Blood Pressure 167/87 Blood Pressure 165/95 [Left Arm] Blood Pressure 160/84 [Right Arm] O2 Sat by Pulse 98 Oximetry - Lab 04/10/17 05:57 04/10/17 05:57 Most recent lab results Calcium 8.4 mg/dL (8.4-10.2) 04/10/17 05:57 Magnesium 0.20 mg/dL (1.7-2.3) L* 04/09/17 03:31 Urine Creatinine 50.5 mg/dL (0.1-20.0) H 04/05/17 08:40 Urine Sodium 96 mEq/L 04/05/17 09:45 Urine Total Protein 517 mg/dL (5-11.8) H 04/05/17 08:40
--- NOTE | 2017-04-10 10:32 | Progress Note ---
Assessment and Plan Assessment and plan: Acute renal failure. Etiology is secondary to acute kidney injury. We will rule out vasculitis. Patient's baseline creatinine is 0.9. Patient with nephrotic range proteinuria--UPCR 10 g. Renal biopsy completed. Await UPEP, SPEP and SIFE Sinus pauses. Cardiology consultation. Follow-up EKG. Check electrolytes. Nephrotic range proteinuria. As above. Anemia of chronic kidney disease. H&H is stable status post PRBCs. Type 2 diabetes mellitus. Continue Accu-Cheks and sliding scale. Hypertension. Resume antihypertensive medications. Alzheimer's dementia. SNF placement pending. Continue Seroquel. History Interval history: Nursing reports this morning episodes of sinus pauses. Hospitalist Physical - Constitutional Vitals: Temp Pulse Resp BP Pulse Ox 97.9 F 76 20 160/84 98 04/10/17 08:10 04/10/17 08:10 04/10/17 08:10 04/10/17 08:10 04/10/17 04:20 General appearance: Present: no acute distress, well-nourished - EENT Eyes: Present: PERRL, EOM intact ENT: hearing intact, clear oral mucosa, dentition normal - Neck Neck: Present: supple, normal ROM - Respiratory Respiratory effort: normal Respiratory: bilateral: CTA - Cardiovascular Rhythm: regular Heart Sounds: Present: S1 & S2. Absent: gallop, rub - Extremities Extremities: no ischemia, No edema, Full ROM - Abdominal General gastrointestinal: soft, non-tender, non-distended, normal bowel sounds - Integumentary Integumentary: Present: clear, warm, dry - Neurologic Neurologic: CNII-XII intact, moves all extremities Results - Labs CBC & Chem 7: 04/10/17 05:57 04/10/17 05:57 Labs: Laboratory Last Values WBC 7.5 K/mm3 (4.5-11.0) 04/10/17 05:57 RBC 4.73 M/mm3 (3.65-5.03) 04/10/17 05:57 Hgb 11.4 gm/dl (10.1-14.3) D 04/10/17 05:57 Hct 35.5 % (30.3-42.9) D 04/10/17 05:57 MCV 75 fl (79-97) L D 04/10/17 05:57 MCH 24 pg (28-32) L 04/10/17 05:57 MCHC 32 % (30-34) 04/10/17 05:57 RDW 23.0 % (13.2-15.2) H 04/10/17 05:57 Plt Count 292 K/mm3 (140-440) 04/10/17 05:57 Lymph % (Auto) 22.8 % (13.4-35.0) 04/10/17 05:57 [place] % (Auto) 6.9 % (0.0-7.3) 04/10/17 05:57 Eos % (Auto) 2.1 % (0.0-4.3) 04/10/17 05:57 Baso % (Auto) 0.9 % (0.0-1.8) 04/10/17 05:57 Lymph # 1.7 K/mm3 (1.2-5.4) 04/10/17 05:57 [place] # 0.5 K/mm3 (0.0-0.8) 04/10/17 05:57 Eos # 0.2 K/mm3 (0.0-0.4) 04/10/17 05:57 Baso # 0.1 K/mm3 (0.0-0.1) 04/10/17 05:57 Add Manual Diff Complete 04/08/17 07:05 Total Counted 100 04/08/17 07:05 Seg Neutrophils % 67.3 % (40.0-70.0) 04/10/17 05:57 Seg Neuts % (Manual) 59.0 % (40.0-70.0) 04/08/17 07:05 Band Neutrophils % 0 % 04/08/17 07:05 Lymphocytes % (Manual) 34.0 % (13.4-35.0) 04/08/17 07:05 Reactive Lymphs % (Man) 1.0 % 04/08/17 07:05 Monocytes % (Manual) 6.0 % (0.0-7.3) 04/08/17 07:05 Eosinophils % (Manual) 0 % (0.0-4.3) 04/08/17 07:05 Basophils % (Manual) 0 % (0.0-1.8) 04/08/17 07:05 Metamyelocytes % 0 % 04/08/17 07:05 Myelocytes % 0 % 04/08/17 07:05 Promyelocytes % 0 % 04/08/17 07:05 Blast Cells % 0 % 04/08/17 07:05 Nucleated RBC % Not Reportable 04/08/17 07:05 Seg Neutrophils # 5.0 K/mm3 (1.8-7.7) 04/10/17 05:57 Seg Neutrophils # Man 3.9 K/mm3 (1.8-7.7) 04/08/17 07:05 Band Neutrophils # 0.0 K/mm3 04/08/17 07:05 Lymphocytes # (Manual) 2.2 K/mm3 (1.2-5.4) 04/08/17 07:05 Abs React Lymphs (Man) 0.1 K/mm3 04/08/17 07:05 Monocytes # (Manual) 0.4 K/mm3 (0.0-0.8) 04/08/17 07:05 Eosinophils # (Manual) 0.0 K/mm3 (0.0-0.4) 04/08/17 07:05 Basophils # (Manual) 0.0 K/mm3 (0.0-0.1) 04/08/17 07:05 Metamyelocytes # 0.0 K/mm3 04/08/17 07:05 Myelocytes # 0.0 K/mm3 04/08/17 07:05 Promyelocytes # 0.0 K/mm3 04/08/17 07:05 Blast Cells # 0.0 K/mm3 04/08/17 07:05 WBC Morphology Not Reportable 04/08/17 07:05 Hypersegmented Neuts Not Reportable 04/08/17 07:05 Hyposegmented Neuts Not Reportable 04/08/17 07:05 Hypogranular Neuts Not Reportable 04/08/17 07:05 Smudge Cells Not Reportable 04/08/17 07:05 Toxic Granulation Not Reportable 04/08/17 07:05 Toxic Vacuolation Not Reportable 04/08/17 07:05 Dohle Bodies Not Reportable 04/08/17 07:05 Pelger-Huet Anomaly Not Reportable 04/08/17 07:05 Dung Rods Not Reportable 04/08/17 07:05 Platelet Estimate Cons 04/08/17 07:05 Clumped Platelets Not Reportable 04/08/17 07:05 Plt Clumps, EDTA Not Reportable 04/08/17 07:05 Large Platelets Not Reportable 04/08/17 07:05 Giant Platelets Not Reportable 04/08/17 07:05 Platelet Satelliting Not Reportable 04/08/17 07:05 Plt Morphology Comment Not Reportable 04/08/17 07:05 RBC Morphology Not Reportable 04/08/17 07:05 Dimorphic RBCs Not Reportable 04/08/17 07:05 Polychromasia Not Reportable 04/08/17 07:05 Hypochromasia 2+ 04/08/17 07:05 Poikilocytosis Not Reportable 04/08/17 07:05 Anisocytosis 1+ 04/08/17 07:05 Microcytosis 1+ 04/08/17 07:05 Macrocytosis Not Reportable 04/08/17 07:05 Spherocytes Not Reportable 04/08/17 07:05 Pappenheimer Bodies Not Reportable 04/08/17 07:05 Sickle Cells Not Reportable 04/08/17 07:05 Target Cells Not Reportable 04/08/17 07:05 Tear Drop Cells Not Reportable 04/08/17 07:05 Ovalocytes Not Reportable 04/08/17 07:05 Helmet Cells Not Reportable 04/08/17 07:05 Pineda-[place] Bodies Not Reportable 04/08/17 07:05 [place] Rings Not Reportable 04/08/17 07:05 Mega Cells Not Reportable 04/08/17 07:05 Bite Cells Not Reportable 04/08/17 07:05 Crenated Cell Not Reportable 04/08/17 07:05 Elliptocytes Not Reportable 04/08/17 07:05 Acanthocytes (Spur) Not Reportable 04/08/17 07:05 Rouleaux Not Reportable 04/08/17 07:05 Hemoglobin C Crystals Not Reportable 04/08/17 07:05 Schistocytes Not Reportable 04/08/17 07:05 Malaria parasites Not Reportable 04/08/17 07:05 Joe Bodies Not Reportable 04/08/17 07:05 Hem Pathologist Commnt No 04/08/17 07:05 PT 12.7 Sec. (12.2-14.9) 04/07/17 05:55 INR 0.96 (0.87-1.13) 04/07/17 05:55 Sodium 139 mmol/L (137-145) 04/10/17 05:57 Potassium 3.7 mmol/L (3.6-5.0) D 04/10/17 05:57 Chloride 107.7 mmol/L (98-107) H 04/10/17 05:57 Carbon Dioxide 17 mmol/L (22-30) L 04/10/17 05:57 Anion Gap 18 mmol/L 04/10/17 05:57 BUN 25 mg/dL (7-17) H 04/10/17 05:57 Creatinine 2.6 mg/dL (0.7-1.2) H 04/10/17 05:57 Estimated GFR 22 ml/min 04/10/17 05:57 BUN/Creatinine Ratio 9.61 % 04/10/17 05:57 Glucose 121 mg/dL (65-100) H 04/10/17 05:57 POC Glucose 114 (70-105) H 04/10/17 05:54 Hemoglobin A1c < 4.2 % (4-6) 04/05/17 19:39 Calcium 8.4 mg/dL (8.4-10.2) 04/10/17 05:57 Magnesium 0.20 mg/dL (1.7-2.3) L* 04/09/17 03:31 Iron 28 ug/dL (37-170) L 04/08/17 09:28 TIBC 280.00 mcg/dL (250-450) 04/08/17 09:28 % Saturation 10.00 % 04/08/17 09:28 Transferrin 200 mg/dl (192-382) 04/08/17 09:28 Ferritin 24.6 ng/mL (13.0-400.0) 04/08/17 09:28 Total Bilirubin < 0.20 mg/dL (0.1-1.2) 04/05/17 06:27 AST 24 units/L (5-40) 04/05/17 06:27 ALT 15 units/L (7-56) 04/05/17 06:27 Alkaline Phosphatase 84 units/L (35-129) 04/05/17 06:27 Serum Total Protein 7.5 g/dL (6.1-8.1) 04/05/17 06:27 Total Protein 7.4 g/dL (6.3-8.2) 04/05/17 06:27 Albumin 2.6 g/dL (3.8-4.8) L 04/05/17 06:27 Albumin/Globulin Ratio 0.7 % 04/05/17 06:27 Pgjnd-6-Mtfclceoe 0.3 g/dL (0.2-0.3) 04/05/17 06:27 Cltbx-8-Eivrxzikv 1.3 g/dL (0.5-0.9) H 04/05/17 06:27 Beta Globulins 0.4 g/dL (0.2-0.5) 04/05/17 06:27 Gamma Globulins 2.4 g/dL (0.8-1.7) H 04/05/17 06:27 Abnorm Protein Band 1 see below 04/05/17 06:27 PEP Interpretation see below H 04/05/17 06:27 Urine Color Straw (Yellow) 04/05/17 09:42 Urine Turbidity Clear (Clear) 04/05/17 09:42 Urine pH 6.0 (5.0-7.0) 04/05/17 09:42 Ur Specific [place] 1.011 (1.003-1.030) 04/05/17 09:42 Urine Protein 100 mg/dl mg/dL (Negative) 04/05/17 09:42 Urine Glucose (UA) Neg mg/dL (Negative) 04/05/17 09:42 Urine Ketones Neg mg/dL (Negative) 04/05/17 09:42 Urine Blood Neg (Negative) 04/05/17 09:42 Urine Nitrite Neg (Negative) 04/05/17 09:42 Urine Bilirubin Neg (Negative) 04/05/17 09:42 Urine Urobilinogen < 2.0 mg/dL (<2.0) 04/05/17 09:42 Ur Leukocyte Esterase Mod (Negative) 04/05/17 09:42 Urine WBC (Auto) 26.0 /HPF (0.0-6.0) H 04/05/17 09:42 Urine RBC (Auto) 3.0 /HPF (0.0-6.0) 04/05/17 09:42 U Epithel Cells (Auto) < 1.0 /HPF (0-13.0) 04/05/17 09:42 Urine Bacteria (Auto) 4+ /HPF (Negative) 04/05/17 09:42 Urine Mucus Few /HPF 04/05/17 09:42 Urine Creatinine 50.5 mg/dL (0.1-20.0) H 04/05/17 08:40 Protein/Creatinin Ratio 10.24 04/05/17 08:40 Urine Sodium 96 mEq/L 04/05/17 09:45 Urine Total Protein 517 mg/dL (5-11.8) H 04/05/17 08:40 Immunofix Electrophor see below 04/05/17 06:27 Blood Type O POSITIVE 04/08/17 09:28 Antibody Screen Not Reportable 04/08/17 09:28 STEPHANIE Antibody Screen Negative 04/08/17 09:28 Crossmatch See Detail 04/08/17 09:28
[2017-04-10] MEDS: VENOFER 100 MG in NACL 0.9% 50 ML IV SCH (10:33)
[2017-04-10] MEDS: FEOSOL PO SCH (10:34)
[2017-04-10] MEDS: NORVASC PO SCH (10:34)
[2017-04-10] MEDS: ARICEPT PO SCH (10:34)
[2017-04-10] MEDS: VITAMIN B-12 PO SCH (10:35)
[2017-04-10] MEDS: CATAPRES PO SCH ×2 (10:37→14:14)
[2017-04-10] MEDS: SODIUM BICARBONATE PO SCH ×2 (14:14→22:16)
[2017-04-10] MEDS: DESYREL PO SCH (22:16)
[2017-04-11] MEDS: NOVOLOG SUB-Q SCH ×5 (01:48→22:51)
[2017-04-11] MEDS: APRESOLINE PO SCH ×2 (01:48→07:44)
[2017-04-11] MEDS: CATAPRES PO SCH ×2 (01:49→10:40)
[2017-04-11] MEDS: KCL IV SCH (05:25)
[2017-04-11] MEDS: NACL 0.45% IV SCH (05:25)
[2017-04-11 07:17] LABS: Basophils % (Auto) 0.7 % (0.0-1.8); Eosinophils % (Auto) 2.7 % (0.0-4.3); Hemoglobin 10.1 gm/dl (10.1-14.3); Mean Corpuscular HGB Conc 31 % (30-34); Mean Corpuscular Volume 79 fl (79-97); Platelet Count 276 K/mm3 (140-440); Red Blood Count 4.16 M/mm3 (3.65-5.03); White Blood Count 8.3 K/mm3 (4.5-11.0)
[2017-04-11 07:18] LABS: Mean Corpuscular Hemoglobin 24 pg (28-32); Red Cell Distribution Width 23.1 % (13.2-15.2)
[2017-04-11 07:33] LABS: BUN/Creatinine Ratio 9.28; Calcium 8.3 mg/dL (8.4-10.2); Chloride 107.9 mmol/L (98-107)
[2017-04-11 08:54] LABS: Potassium 4.3 mmol/L (3.6-5.0)
--- NOTE | 2017-04-11 10:01 | Discharge Summary ---
Providers - Providers Date of Admission: 04/04/17 16:06 Date of discharge: 04/11/17 Attending physician: ALEKSEY OWEN 04/04/17 20:56 Consult to Case Management [CONS] Routine Services Needed at Discharge: Other Notified:: COPY OF GIVEN TO CM Additional Physician Instructions: Pt family requests SNF Placement with Dementia Unit. Please send out today. 04/04/17 21:00 Physical Therapy Evaluation and Treat [CONS] Routine Comment: Reason For Exam: weakness 04/10/17 10:32 Consult to Physician [CONS] Routine Consulting Provider: ALEC KELLY Reason For Exam: sinus pauses Place consult to:: DR. KELLY Notified:: ANSWERING SERVICES Phone number called:: [phone] Was contact made?: Yes If yes, spoke with:: PATIENCE Time called:: 13:27 Comment:: GRACE NOTIFIED Primary care physician: SETH GE Hospitalization Hospital course: Mrs. Gregory is a 66yo with hypertension and DM who presented to nephrology clinic appt for follow up visit. She was initially referred by her PCP Dr. Ge, for microalbuminuria. At initial visit, her SCr was 0.9mg/dL. However , follow up labs were notable for SCr 2.7mg/dL and UPCR 10grams. Patient also with decline in Hb to 7.1. Patient was admitted to the hospital for further evaluation of acute renal failure/ROXANN. Patient was seen by nephrology consultation. Patient received IV fluid hydration with no significant improvement in her creatinine. 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 Patient underwent multiple studies including SPEP/UPEP/SIFE and renal biopsy which are all pending. Patient required transfusion of packed red blood cells. Other complications none hospital stay included sinus pauses noted on telemetry. Cardiology consultation Patient will be discharged today and is to follow up as an outpatient with nephrology. Case management was consulted for arrangement of SNF placement for discharge. Dedicated discharge time 35 minutes. Disposition: DC/TX SNF W [facility] CERT Core Measure Documentation - Palliative Care Palliative Care/ Comfort Measures: Not Applicable - Core Measures Any of the following diagnoses?: none Exam - Constitutional Vitals: Temp Pulse Resp BP Pulse Ox 98.6 F 50 L 20 177/88 97 04/11/17 08:29 04/11/17 08:29 04/11/17 08:29 04/11/17 08:29 04/11/17 08:29 General appearance: Present: no acute distress, well-nourished - EENT Eyes: Present: PERRL ENT: hearing intact, clear oral mucosa - Neck Neck: Present: supple, normal ROM - Respiratory Respiratory effort: normal Respiratory: bilateral: CTA - Cardiovascular Heart Sounds: Present: S1 & S2. Absent: rub, click - Extremities Extremities: pulses symmetrical, No edema Peripheral Pulses: within normal limits - Abdominal General gastrointestinal: Present: soft, non-tender, non-distended, normal bowel sounds Female genitourinary: Present: normal - Integumentary Integumentary: Present: clear, warm, dry - Musculoskeletal Musculoskeletal: gait normal, strength equal bilaterally - Psychiatric Psychiatric: appropriate mood/affect, intact judgment & insight - Neurologic Neurologic: CNII-XII intact, moves all extremities Plan Activity: no restrictions Weight Bearing Status: Weight Bear as Tolerated Diet: regular Follow up with: ENRRIQUE HUNTER MD [Staff Physician] - 7 Days SETH GE MD [Primary Care Provider] - 7 Days Prescriptions: amLODIPine [Norvasc] 10 mg PO DAILY #30 tablet AtorvaSTATin [Lipitor] 20 mg PO QHS #30 tablet Cyanocobalamin (Vitamin B-12) [B-12] 1,000 mcg PO DAILY #30 tablet Donepezil [Aricept] 10 mg PO DAILY #30 tablet Ferrous Sulfate [Feosol 325 MG tab] 325 mg PO QDAY #30 tablet Ibandronate Sodium [Boniva] 150 mg PO QMONTH #1 tablet QUEtiapine [SEROquel] 25 mg PO QHS #30 tablet traZODone [Desyrel] 100 mg PO QHS #30 tablet
--- NOTE | 2017-04-11 10:14 | Progress Note ---
Assessment and Plan Impression: * Acute kidney injury - r/o vasculitis/glomorular disease --baseline SCr 0.9mg.dL --SPEP/SIFE negative; UPEP pending * Nephrotic range proteinuria UPCR 10grams - ?membranous * Anemia * Type II DM * Hypertension--accelerated * Dementia * metabolic acidosis Plan: * Patient with stable renal function * s/p renal biopsy * control bp today * co2 17, added po bicarb * replete lytes prn, add kdur and check mag * s/p Transfuse pRBC x 1 unit * Avoid nephrotoxins * Dose medications for renal function * SNF placement per request of daughter * daily cbc/lytes * follow up dr draper in office * cr is stable for discharge Subjective Date of service: 04/11/17 Principal diagnosis: mathew Interval history: resting well in bed today, events noted Objective - Exam Narrative Exam: General appearance: well-developed, well-nourished EENT: ATNC Respiratory: Present: Clear to Ascultation Cardiology: regular, S1S2 Gastrointestinal: normal, no tenderness, no distended Integumentary: no rash Musculoskeletal: other (no edema) Psychiatric: cooperative - Vital Signs Vital signs: Vital Signs - 12hr 04/10/17 04/11/17 04/11/17 23:00 01:48 01:49 Temperature 98.9 F Pulse Rate 56 L 56 L Pulse Rate [ 50 L Right Radial] Respiratory 18 Rate Blood Pressure 154/76 154/76 Blood Pressure 161/84 [Right Arm] O2 Sat by Pulse 93 Oximetry 04/11/17 04/11/17 04/11/17 04:00 07:44 08:29 Temperature 98.5 F 98.6 F Pulse Rate 55 L Pulse Rate [ 51 L 50 L Right Radial] Respiratory 18 20 Rate Blood Pressure 169/74 Blood Pressure 177/85 177/88 [Right Arm] O2 Sat by Pulse 97 Oximetry - Lab 04/11/17 06:14 04/11/17 06:14 Most recent lab results Calcium 8.3 mg/dL (8.4-10.2) L 04/11/17 06:14 Magnesium 2.30 mg/dL (1.7-2.3) 04/11/17 06:14 Urine Creatinine 50.5 mg/dL (0.1-20.0) H 04/05/17 08:40 Urine Sodium 96 mEq/L 04/05/17 09:45 Urine Total Protein 517 mg/dL (5-11.8) H 04/05/17 08:40
[2017-04-11] MEDS: FEOSOL PO SCH (10:36)
[2017-04-11] MEDS: NORVASC PO SCH (10:36)
[2017-04-11] MEDS: ARICEPT PO SCH (10:36)
[2017-04-11] MEDS: SODIUM BICARBONATE PO SCH ×2 (10:36→21:21)
[2017-04-11] MEDS: VITAMIN B-12 PO SCH (10:36)
[2017-04-11] MEDS ORDERED: SODIUM BICARBONATE 75 MEQ in D5W 1,000 ML IV SCH (11:00)
--- NOTE | 2017-04-11 14:35 | Consultation ---
History of Present Illness Consult date: 04/11/17 Consult reason: arrhythmia History of present illness: 66yr old woman admitted with acute renal failure and anemia. Pt hypertensive on presentation with BP 194/93. Cardiology consulted requested for tachy arrhythmia seen on telemetry. Review of tele strips shows a brief episode of atrial tachycardia with a bundle branch block. Patient remained asymptomatic. There were no sinus pauses seen. Labs notable for a severely low magnesium of 0.2. Past History Past Medical History: anemia, diabetes, hypertension, renal failure Past Surgical History: cholecystectomy, hysterectomy, Other (foot surgery) Social history: , lives with family. denies: smoking, alcohol abuse, prescription drug abuse Family history: hypertension Medications and Allergies Allergies Allergy/AdvReac Type Severity Reaction Status Date / Time Penicillins Allergy Rash Unverified 04/04/17 16:07 Home Medications Medication Instructions Recorded Confirmed Last Taken Type AtorvaSTATin [Lipitor] 20 mg PO QHS #30 tablet 04/08/17 Unknown Rx Cyanocobalamin (Vitamin B-12) 1,000 mcg PO DAILY #30 tablet 04/08/17 Unknown Rx [B-12] Donepezil [Aricept] 10 mg PO DAILY #30 tablet 04/08/17 Unknown Rx Ferrous Sulfate [Feosol 325 MG tab] 325 mg PO QDAY #30 tablet 04/08/17 Unknown Rx Ibandronate Sodium [Boniva] 150 mg PO QMONTH #1 tablet 04/08/17 Unknown Rx QUEtiapine [SEROquel] 25 mg PO QHS #30 tablet 04/08/17 Unknown Rx amLODIPine [Norvasc] 10 mg PO DAILY #30 tablet 04/08/17 Unknown Rx traZODone [Desyrel] 100 mg PO QHS #30 tablet 04/08/17 Unknown Rx Active Meds: Active Medications Acetaminophen (Tylenol) 650 mg PO Q4H PRN PRN Reason: Pain MILD(1-3)/Fever >100.5/DUMONT Last Admin: 04/08/17 11:02 Dose: 650 mg Albuterol (Proventil) 2.5 mg IH Q6HRT PRN PRN Reason: Wheezing Amlodipine Besylate (Norvasc) 10 mg PO DAILY [facility] Last Admin: 04/11/17 10:36 Dose: 10 mg Atorvastatin Calcium (Lipitor) 20 mg PO QHS [facility] Last Admin: 04/10/17 22:16 Dose: 20 mg Clonidine HCl (Catapres) 0.1 mg PO TID [facility] Last Admin: 04/11/17 10:40 Dose: 0.1 mg Cyanocobalamin (Vitamin B-12) 1,000 mcg PO DAILY [facility] Last Admin: 04/11/17 10:36 Dose: 1,000 mcg Dextrose (D50w (25gm)) 50 ml IV PRN PRN PRN Reason: Hypoglycemia Donepezil HCl (Aricept) 10 mg PO DAILY [facility] Last Admin: 04/11/17 10:36 Dose: 10 mg Ferrous Sulfate (Feosol) 325 mg PO QDAY [facility] Last Admin: 04/11/17 10:36 Dose: 325 mg Hydralazine HCl (Apresoline) 10 mg IV Q4H PRN PRN Reason: Hypertension Last Admin: 04/09/17 18:40 Dose: 10 mg Hydralazine HCl (Apresoline) 50 mg PO Q8HR [facility] Last Admin: 04/11/17 07:44 Dose: Not Given Sodium Bicarbonate 75 meq/ (Dextrose) 1,075 mls @ 75 mls/hr IV DIRECT [facility] Insulin Aspart (Novolog) 0 units SUB-Q ACHS [place]IL[place] PRN Reason: Protocol Last Admin: 04/11/17 12:28 Dose: 3 units Miscellaneous Medication (Ibandronate Sodium [Boniva]) 150 mg PO QMONTH [facility] Ondansetron HCl (Zofran) 4 mg IV Q8H PRN PRN Reason: N/V unrelieved by Regjasbir Quetiapine Fumarate (Seroquel) 25 mg PO QHS [facility] Last Admin: 04/10/17 22:15 Dose: 25 mg Sodium Bicarbonate (Sodium Bicarbonate) 1,300 mg PO BID [facility] Last Admin: 04/11/17 10:36 Dose: 1,300 mg Trazodone HCl (Desyrel) 100 mg PO QHS [facility] Last Admin: 04/10/17 22:16 Dose: 100 mg Physical Examination Vital Signs Temp Pulse Resp BP 98.7 F 78 19 179/92 04/04/17 17:00 04/04/17 17:00 04/04/17 17:00 04/04/17 17:00 General appearance: no acute distress HEENT: Positive: PERRL Neck: Positive: trachea midline Cardiac: Positive: Reg Rate and Rhythm Lungs: Positive: Decreased Breath Sounds Results 04/11/17 06:14 04/11/17 06:14 CBC 04/11/17 Range/Units 06:14 WBC 8.3 (4.5-11.0) K/mm3 RBC 4.16 (3.65-5.03) M/mm3 Hgb 10.1 (10.1-14.3) gm/dl Hct 33.0 (30.3-42.9) % Plt Count 276 (140-440) K/mm3 Lymph # 2.2 (1.2-5.4) K/mm3 [place] # 0.7 (0.0-0.8) K/mm3 Eos # 0.2 (0.0-0.4) K/mm3 Baso # 0.1 (0.0-0.1) K/mm3 Comprehensive Metabolic Panel 04/11/17 Range/Units 06:14 Sodium 139 (137-145) mmol/L Potassium 4.3 (3.6-5.0) mmol/L Chloride 107.9 H (98-107) mmol/L Carbon Dioxide 17 L (22-30) mmol/L BUN 26 H (7-17) mg/dL Creatinine 2.8 H (0.7-1.2) mg/dL Glucose 118 H (65-100) mg/dL Calcium 8.3 L (8.4-10.2) mg/dL Assessment and Plan Acute renal failure Anemia requiring blood transfusion Hypertension -uncontrolled Hypomagnesemia -replaced Paroxysmal atrial tachycardia on telemetry -No reoccurrence Recommendations: Low dose beta kindra for suppression of atrial tachycardia. Optimal BP management. We will stop clonidine and hydralazine and replace with diovan and losartan. Continue telemetry monitoring.
[2017-04-11] MEDS: APRESOLINE IV PRN (15:48)
[2017-04-11] MEDS: TYLENOL PO PRN (18:54)
[2017-04-11] MEDS: DESYREL PO SCH (21:21)
[2017-04-11] MEDS: DIOVAN PO SCH (21:24)
[2017-04-12 05:46] LABS: Basophils % (Auto) 1.3 % (0.0-1.8); Eosinophils % (Auto) 1.5 % (0.0-4.3); Hematocrit 31.1 % (30.3-42.9); Hemoglobin 9.9 gm/dl (10.1-14.3); Mean Corpuscular HGB Conc 32 % (30-34); Mean Corpuscular Volume 75 fl (79-97); Platelet Count 288 K/mm3 (140-440); Red Blood Count 4.14 M/mm3 (3.65-5.03); White Blood Count 9.2 K/mm3 (4.5-11.0)
[2017-04-12 05:59] LABS: BUN/Creatinine Ratio 11.2; Calcium 8.1 mg/dL (8.4-10.2); Chloride 110.2 mmol/L (98-107); Potassium 3.7 mmol/L (3.6-5.0)
[2017-04-12 06:00] LABS: Mean Corpuscular Hemoglobin 24 pg (28-32)
[2017-04-12 06:01] LABS: Red Cell Distribution Width 22.8 % (13.2-15.2)
[2017-04-12] MEDS: NOVOLOG SUB-Q SCH ×2 (08:00→13:20)
[2017-04-12] MEDS: DIOVAN PO SCH (09:21)
[2017-04-12] MEDS: NORVASC PO SCH (09:22)
[2017-04-12] MEDS: FEOSOL PO SCH (09:22)
[2017-04-12] MEDS: SODIUM BICARBONATE PO SCH (09:22)
[2017-04-12] MEDS: ARICEPT PO SCH (09:23)
--- NOTE | 2017-04-12 09:50 | Progress Note ---
Assessment and Plan Acute renal failure. Etiology is secondary to acute kidney injury. We will rule out vasculitis. Patient's baseline creatinine is 0.9. Patient with nephrotic range proteinuria--UPCR 10 g. Renal biopsy completed. Await UPEP, SPEP and SIFE Sinus pauses. Cardiology consultation. Follow-up EKG. Check electrolytes. Nephrotic range proteinuria. As above. Anemia of chronic kidney disease. H&H is stable status post PRBCs. Type 2 diabetes mellitus. Continue Accu-Cheks and sliding scale. Hypertension. Resume antihypertensive medications. Alzheimer's dementia. SNF placement pending. Continue Seroquel. Subjective Date of service: 04/11/17 Principal diagnosis: mathew Interval history: Nursing reports this morning episodes of sinus pauses. Objective - Constitutional Vitals: Vital Signs - 12hr 04/11/17 04/12/17 04/12/17 22:00 00:00 04:00 Temperature 99.6 F 99.3 F Pulse Rate Pulse Rate [ 64 70 Right Radial] Pulse Rate [ Right] Respiratory 18 20 20 Rate Blood Pressure Blood Pressure 139/81 143/83 [Right Arm] O2 Sat by Pulse Oximetry 04/12/17 04/12/17 04/12/17 07:00 09:11 09:21 Temperature 99.3 F Pulse Rate 67 Pulse Rate [ 56 L Right Radial] Pulse Rate [ 67 Right] Respiratory 18 18 Rate Blood Pressure 176/87 Blood Pressure 178/90 176/87 [Right Arm] O2 Sat by Pulse 98 Oximetry 04/12/17 04/12/17 09:22 09:23 Temperature Pulse Rate 67 67 Pulse Rate [ Right Radial] Pulse Rate [ Right] Respiratory Rate Blood Pressure 176/87 176/87 Blood Pressure [Right Arm] O2 Sat by Pulse Oximetry General appearance: Present: no acute distress, well-nourished - EENT Eyes: PERRL, EOM intact ENT: hearing intact, clear oral mucosa Ears: bilateral: normal - Neck Neck: supple, normal ROM - Respiratory Respiratory effort: normal Respiratory: bilateral: CTA - Breasts Breasts: normal - Cardiovascular Rhythm: regular Heart Sounds: Present: S1 & S2. Absent: gallop, rub Extremities: pulses intact, No edema, normal color, Full ROM - Gastrointestinal General gastrointestinal: Present: soft, non-tender, non-distended, normal bowel sounds - Genitourinary Female genitourinary: normal - Integumentary Integumentary: clear, warm, dry - Musculoskeletal Musculoskeletal: 1, strength equal bilaterally - Neurologic Neurologic: moves all extremities - Psychiatric Psychiatric: memory intact, appropriate mood/affect, intact judgment & insight - Labs CBC & Chem 7: 04/12/17 04:29 04/12/17 04:29 Labs: Abnormal lab results 04/11/17 04/11/17 04/11/17 Range/Units 11:26 16:31 20:58 Hgb (10.1-14.3) gm/dl MCV (79-97) fl MCH (28-32) pg RDW (13.2-15.2) % [place] % (Auto) (0.0-7.3) % [place] # (0.0-0.8) K/mm3 Chloride (98-107) mmol/L Carbon Dioxide (22-30) mmol/L BUN (7-17) mg/dL Creatinine (0.7-1.2) mg/dL POC Glucose 152 H 135 H 175 H (70-105) Calcium (8.4-10.2) mg/dL 04/12/17 04/12/17 Range/Units 04:29 04:29 Hgb 9.9 L (10.1-14.3) gm/dl MCV 75 L D (79-97) fl MCH 24 L (28-32) pg RDW 22.8 H (13.2-15.2) % [place] % (Auto) 10.6 H (0.0-7.3) % [place] # 1.0 H (0.0-0.8) K/mm3 Chloride 110.2 H (98-107) mmol/L Carbon Dioxide 18 L (22-30) mmol/L BUN 28 H (7-17) mg/dL Creatinine 2.5 H (0.7-1.2) mg/dL POC Glucose (70-105) Calcium 8.1 L (8.4-10.2) mg/dL
--- NOTE | 2017-04-12 09:51 | Event Note ---
Date: 04/12/17 Patient seen and examined. Patient will be discharged today. Please refer to discharge summary from 04/11/17. Cardiology adjusted blood pressure medications with optimal control. Echocardiogram was completed and will be followed up as an outpatient.
[2017-04-12] MEDS ORDERED: TOPROL XL PO SCH (10:00)
[2017-04-12] MEDS ORDERED: COZAAR PO SCH (10:00)
--- NOTE | 2017-04-12 11:07 | Progress Note ---
Assessment and Plan Acute renal failure Anemia requiring blood transfusion Hypertension -uncontrolled Hypomagnesemia -replaced Paroxysmal atrial tachycardia on low dose beta kindra Transient bradycardia on telemetry - No reoccurrence since correction on electrolytes Recommendations: Optimal BP control. We will stop norvasc and use procardia XL 60mg with diovan for blood pressure control. Echocardiogram for left ventricular function assessment. Subjective Date of service: 04/12/17 Principal diagnosis: mathew Interval history: Patient has no complaints. BP still not optimal, currently 176/87. No reported events on telemetry overnight. Objective Vital Signs Temp Pulse Pulse Pulse Resp BP BP 04/12/17 09:23 67 176/87 04/12/17 09:22 67 176/87 04/12/17 09:21 67 176/87 04/12/17 09:11 67 18 176/87 04/12/17 07:00 99.3 F 56 L 18 178/90 04/12/17 04:00 99.3 F 70 20 143/83 04/12/17 00:00 99.6 F 64 20 139/81 04/11/17 22:00 18 04/11/17 21:24 56 L 173/89 04/11/17 20:00 99.6 F 66 20 156/86 04/11/17 16:43 98.2 F 65 20 166/94 04/11/17 15:48 65 166/94 04/11/17 12:50 98.4 F 54 L 20 165/81 Pulse Ox 04/12/17 09:23 04/12/17 09:22 04/12/17 09:21 04/12/17 09:11 04/12/17 07:00 98 04/12/17 04:00 04/12/17 00:00 04/11/17 22:00 04/11/17 21:24 04/11/17 20:00 96 04/11/17 16:43 04/11/17 15:48 04/11/17 12:50 100 - Physical Examination General: No Apparent Distress HEENT: Positive: PERRL Neck: Positive: trachea midline Cardiac: Positive: Reg Rate and Rhythm Lungs: Positive: Decreased Breath Sounds - Labs and Meds CBC 04/12/17 Range/Units 04:29 WBC 9.2 (4.5-11.0) K/mm3 RBC 4.14 (3.65-5.03) M/mm3 Hgb 9.9 L (10.1-14.3) gm/dl Hct 31.1 (30.3-42.9) % Plt Count 288 (140-440) K/mm3 Lymph # 2.1 (1.2-5.4) K/mm3 [place] # 1.0 H (0.0-0.8) K/mm3 Eos # 0.1 (0.0-0.4) K/mm3 Baso # 0.1 (0.0-0.1) K/mm3 Comprehensive Metabolic Panel 04/12/17 Range/Units 04:29 Sodium 143 (137-145) mmol/L Potassium 3.7 (3.6-5.0) mmol/L Chloride 110.2 H (98-107) mmol/L Carbon Dioxide 18 L (22-30) mmol/L BUN 28 H (7-17) mg/dL Creatinine 2.5 H (0.7-1.2) mg/dL Glucose 83 (65-100) mg/dL Calcium 8.1 L (8.4-10.2) mg/dL
--- NOTE | 2017-04-12 11:26 | Progress Note ---
Assessment and Plan Impression: * Acute kidney injury - r/o vasculitis/glomorular disease --baseline SCr 0.9mg.dL --SPEP/SIFE negative; UPEP pending * Nephrotic range proteinuria UPCR 10grams - ?membranous * Anemia * Type II DM * Hypertension--accelerated * Dementia * metabolic acidosis Plan: * Patient with stable renal function * s/p renal biopsy * control bp today * co2 17, added po bicarb * replete lytes prn, add kdur and check mag * s/p Transfuse pRBC x 1 unit * Avoid nephrotoxins * Dose medications for renal function * SNF placement per request of daughter * daily cbc/lytes * follow up dr draper in office * cr is stable for discharge Subjective Date of service: 04/12/17 Principal diagnosis: mathew Interval history: resting well in bed today, events noted Objective - Exam Narrative Exam: General appearance: well-developed, well-nourished EENT: ATNC Respiratory: Present: Clear to Ascultation Cardiology: regular, S1S2 Gastrointestinal: normal, no tenderness, no distended Integumentary: no rash Musculoskeletal: other (no edema) Psychiatric: cooperative - Vital Signs Vital signs: Vital Signs - 12hr 04/12/17 04/12/17 04/12/17 00:00 04:00 07:00 Temperature 99.6 F 99.3 F 99.3 F Pulse Rate Pulse Rate [ 64 70 56 L Right Radial] Pulse Rate [ Right] Respiratory 20 20 18 Rate Blood Pressure Blood Pressure 139/81 143/83 178/90 [Right Arm] O2 Sat by Pulse 98 Oximetry 04/12/17 04/12/17 04/12/17 09:11 09:21 09:22 Temperature Pulse Rate 67 67 Pulse Rate [ Right Radial] Pulse Rate [ 67 Right] Respiratory 18 Rate Blood Pressure 176/87 176/87 Blood Pressure 176/87 [Right Arm] O2 Sat by Pulse Oximetry 04/12/17 09:23 Temperature Pulse Rate 67 Pulse Rate [ Right Radial] Pulse Rate [ Right] Respiratory Rate Blood Pressure 176/87 Blood Pressure [Right Arm] O2 Sat by Pulse Oximetry - Lab 04/12/17 04:29 04/12/17 04:29 Most recent lab results Calcium 8.1 mg/dL (8.4-10.2) L 04/12/17 04:29 Magnesium 2.30 mg/dL (1.7-2.3) 04/11/17 06:14 Urine Creatinine 50.5 mg/dL (0.1-20.0) H 04/05/17 08:40 Urine Sodium 96 mEq/L 04/05/17 09:45 Urine Total Protein 517 mg/dL (5-11.8) H 04/05/17 08:40
[2017-04-12] MEDS: APRESOLINE IV PRN (13:21)
[2017-04-12] MEDS: VITAMIN B-12 PO SCH (13:31)
[2017-04-12] MEDS ORDERED: PROCARDIA XL PO ONE (15:00)
[2017-04-12 16:47] VITALS: BP 146/89
[2017-04-12] MEDS ORDERED: SODIUM BICARBONATE PO SCH (22:00)
[2017-04-13] MEDS ORDERED: PROCARDIA XL PO SCH (10:00)
== END 2017-04-12 17:45 | DRG 682 ==
LOC: 3A 15:38 → UNDOADMIN 15:38 → 3A 16:06
PROVIDERS: ADMIT Internal Medicine; ATTEND Hospitalist
PROC: 30233N1 Transfusion of Nonautologous Red Blood Cells into Peripheral Vein, Percutaneous Approach (ICD-10-PCS; 2017-04-04)
PROC: 0TB13ZX Excision of Left Kidney, Percutaneous Approach, Diagnostic (ICD-10-PCS; principal; 2017-04-09)
DX: N17.0 Acute kidney failure with tubular necrosis (principal); G93.40 Encephalopathy, unspecified; I47.1 Supraventricular tachycardia; E11.22 Type 2 diabetes mellitus with diabetic chronic kidney disease; D64.9 Anemia, unspecified; G30.9 Alzheimer's disease, unspecified; F02.80 Dementia in other diseases classified elsewhere, unspecified severity, without behavioral disturbance, psychotic disturbance, mood disturbance, and anxiety; I12.9 Hypertensive chronic kidney disease with stage 1 through stage 4 chronic kidney disease, or unspecified chronic kidney disease; N18.9 Chronic kidney disease, unspecified; D63.1 Anemia in chronic kidney disease; R80.8 Other proteinuria; E83.42 Hypomagnesemia; Z88.0 Allergy status to penicillin; Z82.49 Family history of ischemic heart disease and other diseases of the circulatory system; Z90.49 Acquired absence of other specified parts of digestive tract; Z90.710 Acquired absence of both cervix and uterus
CPT/HCPCS: 36415; 70450; 76770; 77012; 80048; 80053; 81001; 82570; 82728; 82962; 83036; 83550; 83735; 84156; 84165; 84166; 84300; 85007; 85014; 85018; 85025; 85610; 86334; 86850; 86900; 86901; 86920; 90732; 93005; 93010; 93306; 96374; A9270-GY; G8978-GP; G8979-GP; G8980-GP; J0360; J1756; J1815; J2250; J3010; J3475; J3480; J7040; J7050; J7070; P9016